=== PATIENT | female | born 1995 | race Two or more races ===

== ENCOUNTER 2020-08-29 10:37 | Outpatient (REF) | payer OTHER, SELFPAY | END 2020-08-29 10:38 | disposition home or self-care (01) | LOC: HO.LAB 10:37 | PROVIDERS: Visit Provider Internal Medicine | DX: Z20.828 Contact with and (suspected) exposure to other viral communicable diseases (principal) | CPT/HCPCS: C9803; U0003 ==

== ENCOUNTER 2020-09-02 07:53 | Outpatient (REF) | payer OTHER, SELFPAY ==
[2020-09-02 08:28] LABS: Hematocrit 40.2 % (37-47); Hemoglobin 13.8 g/dl (12.0-16.0); Mean Corpuscular HGB Conc 34.3 g/dl (31.0-35.0); Mean Corpuscular Hemoglobin 30.7 pg (27.0-33.0); Mean Corpuscular Volume 89.3 fL (80-98); Mean Platelet Volume 10.2 fL (9.4-12.3); Platelet Count 294 X10*3/uL (160-400); Red Cell Distribution Width 11.4 % (11.0-16.0); White Blood Count 6.6 X10*3/uL (4.8-10.8)
[2020-09-02 09:20] LABS: Alanine Aminotransferase 11 U/L (0-31); Albumin Level 4.2 g/dL (3.5-5.0); Alkaline Phosphatase 67 U/L (39-117); Anion Gap 11 (12-20); Aspartate Amino Transferase 15 U/L (5-31); Bilirubin Total 0.7 mg/dL (0.0-1.0); Blood Urea Nitrogen 12 mg/dL (9-16); Calcium 8.7 mg/dL (8.4-10.2); Carbon Dioxide 25 mmol/L (22-29); Chloride 105 mmol/L (96-108); Cholesterol 208 mg/dL; Estimated Glomerular Filt Rate > 60; Glucose Fasting 91 mg/dL (60-99); HDL Cholesterol 37 mg/dL; Iron 90 mcg/dL (30-160); LDL Cholesterol Calculated 161 mg/dl; Percent Iron Saturation 30 % (15-50); Potassium 4.2 mmol/l (3.3-5.1); Sodium 137 mmol/L (135-145); Total Iron Binding Capacity 303 mcg/dL (228-428); Triglycerides 51 mg/dL; Unsaturated Iron Binding 213 ug/dL
== END 2020-09-02 07:54 | disposition home or self-care (01) ==
LOC: HO.LAB 07:53
PROVIDERS: Visit Provider Internal Medicine
DX: Z30.46 Encounter for surveillance of implantable subdermal contraceptive (principal)
CPT/HCPCS: 36415; 80053; 80061; 83540; 84443; 85027

== ENCOUNTER → 2020-09-03 08:17 | Outpatient (BNVA) | payer OTHER, SELFPAY | PROVIDERS: PCP Internal Medicine; Visit Provider Advanced Practice Midwife | DX: Z30.46 Encounter for surveillance of implantable subdermal contraceptive (principal) | CPT/HCPCS: 11982 ==

== ENCOUNTER → 2020-11-04 11:00 | Outpatient (BNVA) | payer OTHER, SELFPAY | PROVIDERS: PCP Internal Medicine; Visit Provider Advanced Practice Midwife ==

== ENCOUNTER 2020-11-20 10:35 | Outpatient (REF) | payer OTHER, SELFPAY | END 2020-11-20 10:36 | disposition home or self-care (01) | LOC: HO.LAB 10:35 | PROVIDERS: Visit Provider Advanced Practice Midwife | DX: O20.0 Threatened abortion (principal); Z3A.00 Weeks of gestation of pregnancy not specified | CPT/HCPCS: 36415; 84702; 86850; 86886; 86900; 86901 ==

== ENCOUNTER 2020-11-21 09:39 | Outpatient (REF) | payer OTHER, SELFPAY ==
[2020-11-22 11:42] LABS: C. trachomatis RNA TMA NOT DETECTED (NOT DETECTED); N. gonorrhoeae RNA TMA NOT DETECTED (NOT DETECTED)
== END 2020-11-21 09:40 | disposition home or self-care (01) ==
LOC: HO.LAB 09:39
PROVIDERS: Visit Provider Advanced Practice Midwife
DX: O20.0 Threatened abortion (principal); Z3A.00 Weeks of gestation of pregnancy not specified
CPT/HCPCS: 36415; 87491; 87591

== ENCOUNTER 2020-11-21 11:02 | Outpatient (REF) | payer OTHER, SELFPAY ==
--- NOTE | ~2020-11-21 | US_ITS ---
EXAMINATION: OBSTETRICAL ULTRASOUND, FIRST TRIMESTER HISTORY: 25-year-old with abdominal cramping Rule out threatened AB LMP: Unknown COMPARISON: None in this TECHNIQUE: Real time transabdominal imaging with color and M-mode Doppler. FINDINGS: A single, live IUP CRL of 23.0 mm c/w 9.0wks is noted. Heart Rate: 182 beats per minute. No evidence of subchorionic hematoma. Both maternal ovaries are seen and appear normal. No free fluid in the cul-de-sac GESTATIONAL AGE: 1. GA from LMP: N/A wks 2. GA from AUA: 9.0 wks ESTIMATED DATE OF DELIVERY: 1. LEFTY from LMP: N/A 2. LEFTY from AUA: 06/26/2021 US/US OB <= 14 weeks fetus IMPRESSION: 1. A single live IUP 2. CRL 23.0 mm, c/w 9.0 wks, LEFTY 06/26/21 3. Normal ovaries
== END 2020-11-21 11:03 | disposition home or self-care (01) ==
LOC: HO.US 11:02
PROVIDERS: Visit Provider Advanced Practice Midwife
DX: O20.0 Threatened abortion (principal)
CPT/HCPCS: 76801

== ENCOUNTER → 2020-11-26 11:04 | Outpatient (BNVA) | payer OTHER, SELFPAY | PROVIDERS: Visit Provider Advanced Practice Midwife | CPT/HCPCS: 99212 ==

== ENCOUNTER 2020-12-03 13:00 | Outpatient (REF) | payer OTHER, SELFPAY ==
[2020-12-03 13:41] LABS: MANUAL DIFF FLAG NO
[2020-12-03 13:44] LABS: Basophils Percent Auto 0.3 % (0-2); Eosinophils Absolute Auto 0.1 X10*3/uL (0.0-0.4); Eosinophils Percent Auto 0.9 % (0-4); Hematocrit 38.9 % (37-47); Hemoglobin 13.3 g/dl (12.0-16.0); Imm Gran Abs Auto 0.04 X10*3/uL (0.00-0.03); Imm Gran Pct Auto 0.3 % (0.0-0.4); Lymphocytes Absolute Auto 1.6 X10*3/uL (1.2-4.9); Mean Corpuscular HGB Conc 34.2 g/dl (31.0-35.0); Mean Corpuscular Hemoglobin 30.9 pg (27.0-33.0); Mean Corpuscular Volume 90.3 fL (80-98); Mean Platelet Volume 10.5 fL (9.4-12.3); Monocytes Absolute Auto 0.4 X10*3/uL (0.1-1.2); Monocytes Percent Auto 3.5 % (2-11); Neutrophils Absolute Auto 9.5 X10*3/uL (2.0-8.3); Platelet Count 292 X10*3/uL (160-400); Red Blood Count 4.31 X10*6/uL (4.20-5.50); Red Cell Distribution Width 11.9 % (11.0-16.0); White Blood Count 11.7 X10*3/uL (4.8-10.8)
[2020-12-03 14:39] LABS: Syphilis Screen Nonreactive (Nonreactive)
[2020-12-03 14:59] LABS: Amphetamine Screen Urine Not Detected (Not Detect); Barbiturates, Urine Not Detected (Not Detect); Benzodiazepines Screen Urine Not Detected (Not Detect); Cannabinoid Screen Urine Not Detected (Not Detect); Cocaine Screen Urine Not Detected (Not Detect); Opiate Screen Urine Not Detected (Not Detect); Phencyclidine Screen Urine Not Detected (Not Detect)
[2020-12-04 05:46] LABS: Rubella IgG Antibody 4.79 Index; Varicella IgG Antibody >4000.00 index
[2020-12-04 08:00] LABS: HIV AB/AG Nonreactive (Nonreactive); HIV Num 1 0.08 S/CO (0.00-0.99); Hepatitis B Surface Antigen Negative (Negative); ~Hepatitis C Antibody Nonreactive (Nonreactive)
== END 2020-12-03 13:01 | disposition home or self-care (01) ==
LOC: HO.LAB 13:00
PROVIDERS: PCP Internal Medicine; Visit Provider Advanced Practice Midwife
DX: Z34.90 Encounter for supervision of normal pregnancy, unspecified, unspecified trimester (principal); Z3A.00 Weeks of gestation of pregnancy not specified
CPT/HCPCS: 80307; 85025; 86762; 86780; 86787; 86803; 86850; 86900; 86901; 87086; 87340; 87389

== ENCOUNTER 2020-12-04 09:00 | Outpatient (REF) | payer OTHER, SELFPAY ==
[2020-12-09 13:31] LABS: HPV mRNA E6/E7 rflx Not Detected (Not Detected)
== END 2020-12-04 09:01 | disposition home or self-care (01) ==
LOC: HO.LAB 09:00
PROVIDERS: PCP Internal Medicine; Visit Provider Advanced Practice Midwife
DX: O20.0 Threatened abortion (principal); Z3A.10 10 weeks gestation of pregnancy
CPT/HCPCS: 36415; 81003; 87624; 88142; 99212

== ENCOUNTER 2020-12-06 13:56 | Emergency (ER) | payer OTHER, SELFPAY ==
--- NOTE | ~2020-12-06 | US_ITS ---
EXAMINATION: US OBSTETRICAL ULTRASOUND CLINICAL INFORMATION: Vaginal bleeding COMPARISON: 11/21/2020. LMP: Unknown. TECHNIQUE: Real-time transabdominal imaging with color and M-mode Doppler FINDINGS: There is a single intrauterine gestational sac with visible yolk sac, embryo/fetus, and cardiac activity. There is no significant subchorionic hemorrhage or hematoma. HR: 155 beats per minute. CRL (crown rump length): 4.22 cm (11 +/- 4 days). LEFTY (estimated date of delivery): 06/26/2021 +/- 4 days. MATERNAL ADNEXA: The right maternal ovary measures 3.1 x 2.0 x 2.3 cm. The left maternal ovary measures 2.4 x 1.3 x 1.2 cm. There is no significant maternal adnexal mass. No maternal pelvic ascites. US/US OB <= 14 weeks fetus IMPRESSION: 1. Single intrauterine gestation with ultrasound gestational age of 11 weeks +/- 4 days, unchanged. 2. Estimated date of delivery is 06/26/2021 +/- 4 days, unchanged. 3. No maternal adnexal mass or pelvic ascites.
[2020-12-06 14:10] VITALS: BP 127/53; PULSE 86; RESP 18; TEMP 37.3; O2SAT 99; BMI 27.1
[2020-12-06 16:12] LABS: MANUAL DIFF FLAG NO
[2020-12-06 16:14] LABS: Basophils Percent Auto 0.3 % (0-2); Eosinophils Absolute Auto 0.1 X10*3/uL (0.0-0.4); Eosinophils Percent Auto 0.9 % (0-4); Hemoglobin 12.9 g/dl (12.0-16.0); Imm Gran Abs Auto 0.03 X10*3/uL (0.00-0.03); Imm Gran Pct Auto 0.3 % (0.0-0.4); Lymphocytes Absolute Auto 1.8 X10*3/uL (1.2-4.9); Lymphocytes Percent Auto 15.9 % (20-40); Mean Corpuscular HGB Conc 34.9 g/dl (31.0-35.0); Mean Corpuscular Hemoglobin 31.1 pg (27.0-33.0); Mean Corpuscular Volume 89.2 fL (80-98); Mean Platelet Volume 10.2 fL (9.4-12.3); Monocytes Absolute Auto 0.6 X10*3/uL (0.1-1.2); Monocytes Percent Auto 5.2 % (2-11); Neutrophils Absolute Auto 8.9 X10*3/uL (2.0-8.3); Neutrophils Percent Auto 77.4 % (45-73); Platelet Count 276 X10*3/uL (160-400); Red Blood Count 4.15 X10*6/uL (4.20-5.50); Red Cell Distribution Width 11.8 % (11.0-16.0); White Blood Count 11.5 X10*3/uL (4.8-10.8)
[2020-12-06 16:37] LABS: Anion Gap 12 (12-20); Blood Urea Nitrogen 11 mg/dL (9-16); Calcium 8.9 mg/dL (8.4-10.2); Carbon Dioxide 23 mmol/L (22-29); Chloride 104 mmol/L (96-108); Creatinine Clr Calc Pharmacy 120.6; Estimated Glomerular Filt Rate > 60; Glucose Random 94 mg/dL (60-115); Potassium 3.9 mmol/L (3.3-5.1); Sodium 135 mmol/L (135-145)
--- NOTE | 2020-12-06 20:06 | ED_ITS ---
HPI - General Chief complaint: Vaginal Bleeding Stated complaint: VAGINAL BLEEDING Source: patient Mode of arrival: ambulatory Limitations: no limitations History of Present Illness HPI Narrative: 25-year-old female 2 para 1 A0 presents approximately of 11 weeks with abdominal cramping, vaginal bleeding, and vaginal discharge. She was seen by her Ob approximately a week ago, tested for STIs with normal findings. She called out OB, stated that Dr. Lynch recommended that she come to the emergency department for evaluation and pelvic ultrasound. She does not describe any malodorous discharge, assault, trauma, chest pain or pressure, palpitations, shortness of breath, edema, numbness, weakness, abdominal distention, dysuria, or hematuria. MD Complaint: abdominal pain, vaginal bleeding and vaginal discharge Onset (ago): day(s) (3) Pain Consistency: intermittent Location: pelvis Severity: moderate Quality: Cramping Radiation: pelvis Relieving factors: none Associated symptoms: vaginal bleeding and vaginal discharge Vaginal discharge: cloudy Vaginal bleeding: light Patient : Yes Expected Date of Delivery: 07/02/21 OB History - Current : no complications OB History - Previous Pregnancies: no complications care: followed by OB Related Data : 2 Para: 1 Total number of abortions (spontaneous and elective): 0 Home Medications Medication Instructions Recorded Confirmed doxylamine succinate 25 mg tablet 25 mg PO BEDTIME PRN 11/26/20 11/26/20 pyridoxine (vitamin B6) 25 mg 25 mg PO TID 11/26/20 11/26/20 tablet Previous Rx's Medication Instructions Recorded fluoxetine 10 mg tablet 10 mg PO DAILY #90 tab 08/29/20 vitamin with calcium 1 tab PO DAILY 30 Days #30 tab 11/04/20 no.72-iron 27 mg-folic acid 1 mg tablet Allergies Allergy/AdvReac Type Severity Reaction Status Date / Time No Known Allergies Allergy Verified 12/04/20 09:09 [No Known Allergies*] Review of Systems Review of Systems: Constitutional: No Fever, No Chills ENT/Mouth: No sore throat, No Rhinorrhea Eyes: No Eye Pain, No Redness Cardiovascular: No Chest Pain, No SOB Respiratory: No Cough, No Sputum, No Wheezing Gastrointestinal: positive Nausea, No Vomiting, No Diarrhea, positive abdominal pain, Genitourinary: positive irregular bleeding, No Dysuria, No Urinary Frequency, positive pelvic cramping, positive vaginal discharge Musculoskeletal: No Myalgias Skin: No rash Neuro: No Weakness, No Headache Psych: No Anxiety/Panic, No Depression Heme/Lymph: No bruising, No Lymphadenopathy Endocrine: No Polyuria, No Polydipsia Yes all other systems are reviewed and are negative PENDING SALE TO [facility] Past Medical History Attestation statement: The following information was validated with the patient. Source: old records reviewed Medical History Annual physical exam Anxiety disorder Breast pain, right Irregular menses Surgical History [place] teeth extracted : 2 Para: 1 Total number of abortions (spontaneous and elective): 0 Family History Family History Father Medical history non-contributory Mother History of hysterectomy Thyroid disorder Maternal Grandmother No problems noted. Maternal Grandfather Throat cancer Smoker Alcohol drinker Paternal Grandfather Unknown family medical history Paternal Grandmother HTN (hypertension) Paternal Aunt Cancer Sister Healthy female Social History Social History Household Members: Significant Other and Children Alcohol intake: current Alcohol intake frequency: holidays/special occasions only Smoking Status: Never smoker Advance Directives: Yes Advance Directives Information Provided: No Advance Directives on File: No Physical Exam Vital Signs: Vital Signs: Last Vital Signs Temp 99.2 F 12/06/20 14:10 Pulse 63 12/06/20 21:50 Resp 18 12/06/20 21:50 BP 100/62 12/06/20 21:50 Pulse Ox 100 12/06/20 21:50 Body Mass Index 27.1 Appearance: Alert. Oriented X3. No acute distress. Eyes: Pupils equal, round and reactive to light. ENT: Pharynx normal. Neck: Normal inspection. Neck supple. CVS: Normal heart rate and rhythm. Pulses normal. Respiratory: No respiratory distress. Breath sounds normal. Abdomen: Soft and nontender. Skin: Skin warm and dry. Normal skin color. Normal skin turgor. Extremities: No lower extremity edema. Neuro: No motor deficit. No sensory deficit. : General: Yes bladder normal to palpation External Female Exam: normal external appearance and normal appearance of the urethra Speculum Exam - Vagina: abnormal vaginal discharge white, not erythematous, no foreign bodies, no lacerations, no lesions, No vaginal bleeding, No tissue present in vagina, no masses and nontender Speculum Exam - Cervix: normal palpation, Cervical os closed, nontender and Other cervical findings present (Friability, multiple punctate hemorrhages consistent with strawberry cervix) Bimanual exam- vagina & uterus: normal bimanual exam, bladder normal to palpation, normal palpation, No Cervical tenderness present and no cervical motion tenderness Bimanual Exam- Adnexa, other: normal adnexae OB/external & speculum: no foreign bodies, no tissue noted in vagina and vaginal bleeding Course Course Course Narrative: A 25-year-old female 2 para 1 0 presents with vaginal bleeding, white vaginal discharge, and cramping. Her daughter is 4, normal vaginal delivery, no complications with prior . Patient was seen by her Ob about a week ago, was tested for STI which were negative. Will test for trichomoniasis and bacterial vaginosis, cervix is closed and slit consistent with prior vaginal delivery, no tissue in the office, white thick discharge noted with punctate hemorrhages consistent with strawberry cervix, friable upon cervical swab. Order for pelvic ultrasound. Pelvic ultrasound shows intrauterine at 11 weeks +/-4 days with heartbeat of 155. Discussion with Dr. Lynch, plan is for patient follow-up in the office. Patient verbalized understanding of and agrees plan of care discharge home. MDM - OB/Uterine Contractions MDM Narrative Medical decision making narrative: Missed , threatened , abnormal vaginal bleeding, trichomoniasis, bacterial vaginosis, candidiasis Medical Records Attestation: I reviewed the patient's medical records. Lab Data Attestation: I reviewed the patient's lab results. Result diagrams: 12/06/20 16:01 12/06/20 16:01 Labs: Lab Results 12/06/20 12/06/20 12/06/20 Range/Units 16:01 16:01 16:01 WBC 11.5 H (4.8-10.8) X10*3/uL RBC 4.15 L (4.20-5.50) X10*6/uL Hgb 12.9 (12.0-16.0) g/dl Hct 37.0 (37-47) % MCV 89.2 (80-98) fL MCH 31.1 (27.0-33.0) pg MCHC 34.9 (31.0-35.0) g/dl RDW 11.8 (11.0-16.0) % Plt Count 276 (160-400) X10*3/uL MPV 10.2 (9.4-12.3) fL Immature Gran % (Auto) 0.3 (0.0-0.4) % Neut % (Auto) 77.4 H (45-73) % Lymph % (Auto) 15.9 L (20-40) % [place] % (Auto) 5.2 (2-11) % Eos % (Auto) 0.9 (0-4) % Baso % (Auto) 0.3 (0-2) % Lymph # (Auto) 1.8 (1.2-4.9) X10*3/uL [place] # (Auto) 0.6 (0.1-1.2) X10*3/uL Eos # (Auto) 0.1 (0.0-0.4) X10*3/uL Baso # (Auto) 0.0 (0.0-0.2) X10*3/uL Abs Immat Gran (auto) 0.03 (0.00-0.03) X10*3/uL Absolute Neuts (auto) 8.9 H (2.0-8.3) X10*3/uL Absolute Nucleated RBC 0.000 (0.0-0.012) X10*3/uL Nucleated RBC % (auto) 0.0 (0.0-0.2) /100WBC Hold Blue Top SEE NOTE Sodium 135 (135-145) mmol/L Potassium 3.9 (3.3-5.1) mmol/L Chloride 104 (96-108) mmol/L Carbon Dioxide 23 (22-29) mmol/L Anion Gap 12 (12-20) BUN 11 (9-16) mg/dL Creatinine 0.68 (0.5-1.4) mg/dL Estim Creat Clear Calc 120.6 Estimated GFR > 60 Random Glucose 94 (60-115) mg/dL Calcium 8.9 (8.4-10.2) mg/dL Beta HCG, Quant mIU/mL Blood Type 12/06/20 12/06/20 Range/Units 21:35 21:35 WBC (4.8-10.8) X10*3/uL RBC (4.20-5.50) X10*6/uL Hgb (12.0-16.0) g/dl Hct (37-47) % MCV (80-98) fL MCH (27.0-33.0) pg MCHC (31.0-35.0) g/dl RDW (11.0-16.0) % Plt Count (160-400) X10*3/uL MPV (9.4-12.3) fL Immature Gran % (Auto) (0.0-0.4) % Neut % (Auto) (45-73) % Lymph % (Auto) (20-40) % [place] % (Auto) (2-11) % Eos % (Auto) (0-4) % Baso % (Auto) (0-2) % Lymph # (Auto) (1.2-4.9) X10*3/uL [place] # (Auto) (0.1-1.2) X10*3/uL Eos # (Auto) (0.0-0.4) X10*3/uL Baso # (Auto) (0.0-0.2) X10*3/uL Abs Immat Gran (auto) (0.00-0.03) X10*3/uL Absolute Neuts (auto) (2.0-8.3) X10*3/uL Absolute Nucleated RBC (0.0-0.012) X10*3/uL Nucleated RBC % (auto) (0.0-0.2) /100WBC Hold Blue Top Sodium (135-145) mmol/L Potassium (3.3-5.1) mmol/L Chloride (96-108) mmol/L Carbon Dioxide (22-29) mmol/L Anion Gap (12-20) BUN (9-16) mg/dL Creatinine (0.5-1.4) mg/dL Estim Creat Clear Calc Estimated GFR Random Glucose (60-115) mg/dL Calcium (8.4-10.2) mg/dL Beta HCG, Quant 90351 mIU/mL Blood Type A Positive Imaging Data Ob transvaginal ultrasound: Attestation: I personally reviewed and interpreted this imaging study as follows: Radiologist's impression: EXAMINATION: US OBSTETRICAL ULTRASOUND CLINICAL INFORMATION: Vaginal bleeding COMPARISON: 11/21/2020. LMP: Unknown. TECHNIQUE: Real-time transabdominal imaging with color and M-mode Doppler FINDINGS: There is a single intrauterine gestational sac with visible yolk sac, embryo/fetus, and cardiac activity. There is no significant subchorionic hemorrhage or hematoma. HR: 155 beats per minute. CRL (crown rump length): 4.22 cm (11 +/- 4 days). LEFTY (estimated date of delivery): 06/26/2021 +/- 4 days. MATERNAL ADNEXA: The right maternal ovary measures 3.1 x 2.0 x 2.3 cm. The left maternal ovary measures 2.4 x 1.3 x 1.2 cm. There is no significant maternal adnexal mass. No maternal pelvic ascites. US/US OB <= 14 weeks fetus IMPRESSION: 1. Single intrauterine gestation with ultrasound gestational age of 11 weeks +/- 4 days, unchanged. 2. Estimated date of delivery is 06/26/2021 +/- 4 days, unchanged. 3. No maternal adnexal mass or pelvic ascites. Discharge Plan Discharge Clinical Impression: Threatened Patient Disposition: Home, Self-Care Instructions: Miscarriage (ED), Threatened Miscarriage (ED) Additional Instructions: You were evaluated for 1st trimester vaginal bleeding and pain. Your ultrasound showed an intrauterine with heart rate of 155. Please follow the instructions for threatened miscarriage, if you notice any of the signs or symptoms please return to the emergency department immediately. Please follow-up with Dr. Lynch's office tomorrow. Please call and make an appointment. Thank you for choosing this emergency department for evaluation. Please follow-up with primary care physician as needed. Return to the emergency department for any new, concerning, or worsening symptoms. Prescriptions: No Action fluoxetine 10 mg tablet 10 mg PO DAILY Qty: 90 RF: 1 Vitamin Plus Low Iron 27 mg iron- 1 mg tablet 1 tab PO DAILY 30 Days Qty: 30 RF: 11 pyridoxine (vitamin B6) 25 mg tablet 25 mg PO TID RF: 0 Unisom (doxylamine) 25 mg tablet 25 mg PO BEDTIME PRNRF: 0 Referrals: Ernst Lynch MD [Physician] - 2 days (F/U for first-trimester vaginal pain or bleeding.)
[2020-12-06 21:50] VITALS: BP 100/62; PULSE 63; RESP 18; O2SAT 100
--- NOTE | 2020-12-06 22:54 | P.CONOB_ITS ---
HRIS COORDINATOR - CN: HPI Data of Consult Primary Care Provider: Sabiha Mcclure MD Consult Narrative Narrative: Myranda Venegas is a 25 year old female cc:: CC: [facility] Past Medical History Medical History Annual physical exam Anxiety disorder Breast pain, right Irregular menses Family History Family History Father Medical history non-contributory Mother History of hysterectomy Thyroid disorder Maternal Grandmother No problems noted. Maternal Grandfather Throat cancer Smoker Alcohol drinker Paternal Grandfather Unknown family medical history Paternal Grandmother HTN (hypertension) Paternal Aunt Cancer Sister Healthy female Surgical History Surgical History [place] teeth extracted Social History Social History Household Members: Significant Other and Children Alcohol intake: current Alcohol intake frequency: holidays/special occasions only Smoking Status: Never smoker Advance Directives: Yes Advance Directives Information Provided: No Advance Directives on File: No Meds Allergies Allergy/AdvReac Type Severity Reaction Status Date / Time No Known Allergies Allergy Verified 12/04/20 09:09 [No Known Allergies*] Home Medications Medication Instructions Recorded Confirmed Last Taken Type doxylamine succinate 25 mg tablet 25 mg PO BEDTIME PRN 11/26/20 11/26/20 Unknown History pyridoxine (vitamin B6) 25 mg 25 mg PO TID 11/26/20 11/26/20 Unknown History tablet HRIS COORDINATOR Physical Exam Vitals Vital signs: Temp Pulse Resp BP Pulse Ox 99.2 F 63 18 100/62 100 12/06/20 14:10 12/06/20 21:50 12/06/20 21:50 12/06/20 21:50 12/06/20 21:50 Body Mass Index 27.1 HRIS COORDINATOR - Results Labs CBC & Chem 7: 12/06/20 16:01 12/06/20 16:01 Labs: Short CBC 12/06/20 Range/Units 16:01 WBC 11.5 H (4.8-10.8) X10*3/uL Hgb 12.9 (12.0-16.0) g/dl Hct 37.0 (37-47) % Plt Count 276 (160-400) X10*3/uL BMP 12/06/20 16:01 Sodium 135 Potassium 3.9 Chloride 104 Carbon Dioxide 23 BUN 11 Creatinine 0.68 Calcium 8.9
--- NOTE | 2020-12-06 22:55 | P.CONOB_ITS ---
FLOODPLAIN MANAGER - CN: HPI Data of Consult Consult date: 12/06/20 Primary Care Provider: Sabiha Mcclure MD Consult Narrative Narrative: I was called on Myranda Venegas, a 25 year old female presented to emergency room with few days history of vaginal bleeding. GC and chlamydia, BV panel, CBC, chemistry all taken ultrasound showed a live fetus at 11 weeks of gestation with a heartbeat of 155 beats per minute. Rh positive cc:: CC: [employer] - Review of Systems Review of Systems ROS Unobtainable: All systems reviewed & are unremarkable except as noted in HPI and below OB PMFSH Past Medical History Medical History Annual physical exam Anxiety disorder Breast pain, right Irregular menses Family History Family History Father Medical history non-contributory Mother History of hysterectomy Thyroid disorder Maternal Grandmother No problems noted. Maternal Grandfather Throat cancer Smoker Alcohol drinker Paternal Grandfather Unknown family medical history Paternal Grandmother HTN (hypertension) Paternal Aunt Cancer Sister Healthy female Surgical History Surgical History [place] teeth extracted Social History Social History Household Members: Significant Other and Children Alcohol intake: current Alcohol intake frequency: holidays/special occasions only Smoking Status: Never smoker Advance Directives: Yes Advance Directives Information Provided: No Advance Directives on File: No Meds Allergies Allergy/AdvReac Type Severity Reaction Status Date / Time No Known Allergies Allergy Verified 12/04/20 09:09 [No Known Allergies*] Home Medications Medication Instructions Recorded Confirmed Last Taken Type doxylamine succinate 25 mg tablet 25 mg PO BEDTIME PRN 11/26/20 11/26/20 Unknown History pyridoxine (vitamin B6) 25 mg 25 mg PO TID 11/26/20 11/26/20 Unknown History tablet FLOODPLAIN MANAGER Physical Exam Vitals Vital signs: Temp Pulse Resp BP Pulse Ox 99.2 F 63 18 100/62 100 12/06/20 14:10 12/06/20 21:50 12/06/20 21:50 12/06/20 21:50 12/06/20 21:50 Body Mass Index 27.1 Additional Comments: Exam reported to show a red closed cervix otherwise unremarkable FLOODPLAIN MANAGER - Results Labs CBC & Chem 7: 12/06/20 16:01 12/06/20 16:01 Labs: Short CBC 12/06/20 Range/Units 16:01 WBC 11.5 H (4.8-10.8) X10*3/uL Hgb 12.9 (12.0-16.0) g/dl Hct 37.0 (37-47) % Plt Count 276 (160-400) X10*3/uL BMP 12/06/20 16:01 Sodium 135 Potassium 3.9 Chloride 104 Carbon Dioxide 23 BUN 11 Creatinine 0.68 Calcium 8.9 Assessment and Plan (1) Threatened : Status: Acute Will follow-up the patient office check GC and chlamydia and BV panel and Pap smear was taken in the office. Instructions to be given to patient to call if cramping or bleeding persists or come back to emergency otherwise follow-up in the office.
[2020-12-06 23:09] LABS: Glucose Urine UA NEG (NEG); Leukocyte Esterase Urine 1+ (NEG); Nitrite Urine NEG (NEG); PH 6.5 (5.0-8.0); UACC Culture Trigger YES; Urine Blood NEG (NEG); Urine Ketones NEG (NEG); Urine Protein NEG (NEG-TRACE)
[2020-12-06 23:10] LABS: Appearance Urine CLEAR; Color Urine YELLOW
[2020-12-06 23:14] LABS: Bacteria Urine 1+ /LPF; Squamous Epithelial Cell Urine 2+ /LPF
[2020-12-07 02:51] VITALS: BP 114/75; PULSE 61; RESP 18; TEMP 36.4; O2SAT 98
[2020-12-07 09:10] LABS: BV Int Neg Control Negative (Negative); BV Int Pos Control Positive (Positive)
[2020-12-11 17:47] LABS: C. trachomatis RNA TMA NOT DETECTED; N. gonorrhoeae RNA TMA NOT DETECTED
== END 2020-12-07 01:00 | disposition home or self-care (01) ==
PROVIDERS: Nurse Practitioner Family; Emergency Provider Internal Medicine; PCP Internal Medicine
DX: O20.0 Threatened abortion (principal); Z3A.11 11 weeks gestation of pregnancy
CPT/HCPCS: 36415; 76801; 80048; 81001; 81003; 84702; 85025; 86900; 86901; 87086; 87480; 87491; 87510; 87591; 87660; 99283; 99284

== ENCOUNTER → 2020-12-11 07:56 | Outpatient (BNVA) | payer OTHER, SELFPAY | PROVIDERS: Visit Provider Obstetrics & Gynecology | DX: O20.0 Threatened abortion (principal) | CPT/HCPCS: 99212 ==

== ENCOUNTER 2020-12-19 09:03 | Outpatient (REF) | payer OTHER, SELFPAY ==
--- NOTE | ~2020-12-19 | US_ITS ---
EXAMINATION: OBSTETRICAL ULTRASOUND, FIRST TRIMESTER HISTORY: 25-year-old at 13.0 weeks of gestation NT screening COMPARISON: 12/06/2020 TECHNIQUE: Real time transabdominal imaging with color and M-mode Doppler. FINDINGS: A single, live IUP CRL of 70.8 mm c/w 13.0wks is noted. Heart Rate: 143 beats per minute. Normal yolk sac seen. NT was 1.4.mm. NB Present The embryo appears sonographically wnl for this GA. Both maternal ovaries are seen and appear normal. GESTATIONAL AGE: 1. Established GA: 13.0 wks 2. GA from AUA: 13.2 wks ESTIMATED DATE OF DELIVERY: 1. Established LEFTY: 06/26/2021 2. LEFTY from AUA: 06/24/2021 US/US OB 1T nuc measure IMPRESSION: 1. Single live IUP 2. Size equals dates 3. NT of 1.3 mm MFM Consultation: I reviewed the ultrasound findings along with significance of NT measurement. The NT of less than 3mm is generally reassuring. However, the sensitivity for T21 detection is only 60%. I reviewed the availability of serum aneuploidy screening which includes cell-free DNA and placental protein based tests. I discussed the sensitivity, false-positive rate, and other limitations associated with each test. I also reviewed the availability of invasive diagnostic tests that are associated small but definite risk of miscarriage. We also reviewed the differences between screening tests and diagnostic tests. After our discussion, she opted for the First trimester screening that is based on cell-free DNA or non-invasive testing (NIPT). The result will be faxed to your office in approximately 7 days. A follow up at 18 weeks for survey has been scheduled. Thank you very much for this referral. Total time 30 minutes. The time spent was devoted to counseling the patient about the disease and diagnosis, coordinating care including reviewing her records, pertinent lab data and studies, as well as discussing diagnostic evaluation and workup, plan therapeutic interventions and future disposition of care. This includes any additional research needed to obtain further information in formulating the plan of care of this patient. This note was generated with a voice recognition program. Please excuse any errors which may have been overlooked during my review of this note. Sometimes these errors may affect the content or meaning of a given sentence.
== END 2020-12-19 09:04 | disposition home or self-care (01) ==
LOC: HO.US 09:03
PROVIDERS: Visit Provider Advanced Practice Midwife
DX: Z34.91 Encounter for supervision of normal pregnancy, unspecified, first trimester (principal); Z36.82 Encounter for antenatal screening for nuchal translucency
CPT/HCPCS: 76813

== ENCOUNTER → 2021-01-01 08:17 | Outpatient (BNVA) | payer OTHER, SELFPAY | PROVIDERS: Visit Provider Advanced Practice Midwife | DX: Z13.9 Encounter for screening, unspecified (principal); Z34.92 Encounter for supervision of normal pregnancy, unspecified, second trimester; Z3A.14 14 weeks gestation of pregnancy | CPT/HCPCS: 99212 ==

== ENCOUNTER 2021-01-30 08:19 | Outpatient (REF) | payer OTHER, SELFPAY ==
--- NOTE | ~2021-01-30 | US_ITS ---
EXAMINATION: US OBSTETRICAL CLINICAL INFORMATION: 25-year-old at 19.0 weeks Screening for anomaly COMPARISON: 12/19/2020 TECHNIQUE: Real-time transabdominal ultrasound was performed using C1-5 megahertz transducer. FINDINGS: A single, active, fetus is seen in cephalic presentation. The placenta is anterior without previa, and the amniotic fluid volume is wnl. MEASUREMENTS: 1. Biparietal Diameter: 4.2 cm; 18.6 wks 2. Occipital Frontal Diameter: 5.6 cm 3. Head Circumference: 16.3 cm; 19.1 wks 4. Abdominal Circumference: 13.5 cm; 19.0 wks 5. Femur Length: 3.0 cm; 19.4 wks 6. Humerus Length: 2.7 cm; 18.5 wks 7. Tibia Length: 2.6 cm; 19.4 wks 8. Ulna Length: 2.6 cm; 19.2 wks 9. Lateral ventricle: 0.64 cm 10. Cerebellum: 1.95 cm; 20.0 wks 11. Cisterna Magna: 0.5 cm 12. Nuchal Fold: 4.2 mm 13. Heart Rate: 147 beats per minute Rt ovary: normal Lt ovary: normal Cervical length 4.7 cm on T/A. GESTATIONAL AGE: 1. Established GA: 19.0 wks 2. GA from [facility]: 19.1 wks ESTIMATED DATE OF DELIVERY: 1. Established LEFTY: 06/26/2021 2. LEFTY from [facility]: 06/25/2021 ANATOMY: The visualized anatomy includes but not limited to: 1. Cranium: Normal 2. Intracranial anatomy: cavum septum pellucidi, lateral ventricles, choroid plexus, cerebellum, posterior fossa, third and fourth ventricles. 3. face: orbits, lip/palate, profile, nasal bone 4. Heart: four-chamber view of the heart, ventricular septum, foramen ovale, pulmonary vein, left and right outflow tracts, three-vessel view, 3 vessel trachea view, aortic and ductal arches, situs.. 5. Diaphragm: Normal 6. Abdominal wall: Normal 7. Cord Insertion: Normal 8. Spine: Cervical, thoracic, lumbar, sacral. 9. Stomach: Normal size and shape 10. Right Kidney: Normal 11. Left Kidney: Normal 12. 3 vessel cord: Normal 13. Upper extremity: Open hands, fifth digit. 14. Lower extremity: Tibia, fibula, bilateral feet. 15. Bladder: Normal 16. Genitalia: Male, patient not aware US/US OB /maternal detail IMPRESSION: 1. Single, living, intrauterine with appropriate biometry. 2. Normal survey DISCUSSION: I reviewed today's ultrasound findings. We discussed the limitations of ultrasound in diagnosing aneuploidy and other congenital abnormalities. I reviewed the differences between screening test and diagnostic test. Amniocentesis was discussed and declined. She was informed that the baseline incidence of congenital abnormalities is approximately 3-5%. Not all these conditions are diagnosable in utero. RECOMMENDATIONS: Follow-up when necessary Thank you for allowing me to participate in her care. Total time 20 minutes. The time spent was devoted to counseling the patient about the disease and diagnosis, coordinating care including reviewing her records, pertinent lab data and studies, as well as discussing diagnostic evaluation and workup, plan therapeutic interventions and future disposition of care. This includes any additional research needed to obtain further information in formulating the plan of care of this patient. This note was generated with a voice recognition program. Please excuse any errors which may have been overlooked during my review of this note. Sometimes these errors may affect the content or meaning of a given sentence.
== END 2021-01-30 08:20 | disposition home or self-care (01) ==
LOC: HO.US 08:19
PROVIDERS: PCP Nurse Practitioner Family; Visit Provider Advanced Practice Midwife
DX: O35.9XX0 Maternal care for (suspected) fetal abnormality and damage, unspecified, not applicable or unspecified (principal); Z3A.19 19 weeks gestation of pregnancy
CPT/HCPCS: 76811

== ENCOUNTER → 2021-02-06 13:52 | Outpatient (BNVA) | payer OTHER, SELFPAY | PROVIDERS: PCP Nurse Practitioner Family; Visit Provider Advanced Practice Midwife | DX: Z13.89 Encounter for screening for other disorder (principal) | CPT/HCPCS: 99212 ==

== ENCOUNTER → 2021-03-23 09:25 | Outpatient (BNVA) | payer OTHER, SELFPAY | PROVIDERS: PCP Nurse Practitioner Family; Visit Provider Advanced Practice Midwife | DX: Z34.92 Encounter for supervision of normal pregnancy, unspecified, second trimester (principal); Z3A.26 26 weeks gestation of pregnancy | CPT/HCPCS: 81003; 99212 ==

== ENCOUNTER 2021-04-06 13:16 | Outpatient (REF) | payer OTHER, SELFPAY ==
[2021-04-06 15:51] LABS: Hematocrit 34.3 % (37-47); Hemoglobin 11.7 g/dl (12.0-16.0); Mean Corpuscular HGB Conc 34.1 g/dl (31.0-35.0); Mean Corpuscular Hemoglobin 32.1 pg (27.0-33.0); Mean Corpuscular Volume 94.2 fL (80-98); Mean Platelet Volume 10.1 fL (9.4-12.3); Platelet Count 285 X10*3/uL (160-400); Red Blood Count 3.64 X10*6/uL (4.20-5.50); Red Cell Distribution Width 12.2 % (11.0-16.0); White Blood Count 12.8 X10*3/uL (4.8-10.8)
[2021-04-06 16:03] LABS: Glucose 1 Hour PP 50gm Dose 174 mg/dL (60-140)
[2021-04-06 16:27] LABS: Syphilis Screen Nonreactive (Nonreactive)
== END 2021-04-06 13:17 | disposition home or self-care (01) ==
LOC: HO.LAB 13:16
PROVIDERS: PCP Nurse Practitioner Family; Visit Provider Advanced Practice Midwife
DX: Z34.93 Encounter for supervision of normal pregnancy, unspecified, third trimester (principal); Z3A.28 28 weeks gestation of pregnancy
CPT/HCPCS: 36415; 81003; 85027; 86780; 99212

== ENCOUNTER 2021-04-18 07:15 | Outpatient (REF) | payer OTHER, SELFPAY ==
[2021-04-18 08:08] LABS: Glucose Fasting 88 mg/dL (60-99)
[2021-04-18 09:06] LABS: Glucose 1 Hour 177 mg/dL
[2021-04-18 09:59] LABS: Glucose 2 Hour 119 mg/dL
[2021-04-18 11:41] LABS: Glucose 3 Hour 103 mg/dL
== END 2021-04-18 07:16 | disposition home or self-care (01) ==
LOC: HO.LAB 07:15
PROVIDERS: PCP Internal Medicine; Visit Provider Advanced Practice Midwife
DX: R73.09 Other abnormal glucose (principal)
CPT/HCPCS: 36415; 82951

== ENCOUNTER → 2021-04-24 14:59 | Outpatient (BNVA) | payer OTHER, SELFPAY | PROVIDERS: PCP Nurse Practitioner Family; Visit Provider Advanced Practice Midwife | DX: Z34.93 Encounter for supervision of normal pregnancy, unspecified, third trimester (principal); Z3A.30 30 weeks gestation of pregnancy | CPT/HCPCS: 81003; 99212 ==

== ENCOUNTER → 2021-05-07 14:03 | Outpatient (BNVA) | payer OTHER, SELFPAY | PROVIDERS: PCP Internal Medicine; Visit Provider Advanced Practice Midwife | DX: O99.213 Obesity complicating pregnancy, third trimester (principal); E66.9 Obesity, unspecified; O36.63X0 Maternal care for excessive fetal growth, third trimester, not applicable or unspecified; Z3A.32 32 weeks gestation of pregnancy | CPT/HCPCS: 90471; 99212 ==

== ENCOUNTER 2021-05-15 13:44 | Outpatient (REF) | payer OTHER, SELFPAY ==
--- NOTE | ~2021-05-15 | US_ITS ---
EXAMINATION: OBSTETRICAL ULTRASOUND, Follow up HISTORY: 25-year-old at the 34.0 weeks of gestation Size date discrepancy COMPARISON: 01/30/2021 TECHNIQUE: Real time transabdominal imaging with color and M-mode Doppler. PRESENTATION: Vertex PLACENTA LOCATION: Anterior without previa AMNIOTIC FLUID: ROGERS: 14.4 cm MEASUREMENTS: 1. Biparietal Diameter: 8.5 cm; 34.2 wks 2. Head Circumference: 32.1 cm; 36.2 wks 3. Abdominal Circumference: 30.5 cm; 34.4 wks 4. Femur Length: 6.5 cm; 33.4 wks 5. Heart Rate: 165 beats per minute WEIGHT: EFW: 2410 grams (5 lbs 5 oz) -- 54 %. BIOPHYSICAL PROFILE: Motion: 2 Tone: 2 Breathin Amniotic Fluid: 2 Total score: /8 GESTATIONAL AGE: 1. Established GA: 34.0 wks 2. GA from AUA: 34.5 wks ESTIMATED DATE OF DELIVERY: 1. Established LEFTY: 06/26/2021 2. LEFTY from AUA: 06/21/2021 US/US OB follow up IMPRESSION: 1. A single active fetus is in vertex presentation 2. Size equals dates 3. BPP 05/24, AFV wnl Thank you very much for this referral. This note was generated with a voice recognition program. Please excuse any errors which may have been overlooked during my review of this note. Sometimes these errors may affect the content or meaning of a given sentence.
== END 2021-05-15 13:45 | disposition home or self-care (01) ==
LOC: HO.US 13:44
PROVIDERS: Visit Provider Advanced Practice Midwife
DX: O36.60X0 Maternal care for excessive fetal growth, unspecified trimester, not applicable or unspecified (principal)
CPT/HCPCS: 76816

== ENCOUNTER → 2021-05-28 14:46 | Outpatient (BNVA) | payer OTHER, SELFPAY | PROVIDERS: PCP Internal Medicine; Visit Provider Advanced Practice Midwife | DX: Z34.83 Encounter for supervision of other normal pregnancy, third trimester (principal); Z3A.35 35 weeks gestation of pregnancy | CPT/HCPCS: 99212 ==

== ENCOUNTER 2021-06-03 14:20 | Outpatient (REF) | payer OTHER, SELFPAY ==
[2021-06-04 09:08] LABS: BV Int Neg Control Negative (Negative); BV Int Pos Control Positive (Positive)
== END 2021-06-03 14:21 | disposition home or self-care (01) ==
LOC: HO.LAB 14:20
PROVIDERS: PCP Internal Medicine; Visit Provider Advanced Practice Midwife
DX: O99.891 Other specified diseases and conditions complicating pregnancy (principal); N89.8 Other specified noninflammatory disorders of vagina; Z3A.36 36 weeks gestation of pregnancy; Z20.2 Contact with and (suspected) exposure to infections with a predominantly sexual mode of transmission
CPT/HCPCS: 81003; 87480; 87491; 87510; 87591; 87660; 99212

== ENCOUNTER → 2021-06-12 13:59 | Outpatient (BNVA) | payer OTHER, SELFPAY | PROVIDERS: PCP Internal Medicine; Visit Provider Advanced Practice Midwife | DX: O99.820 Streptococcus B carrier state complicating pregnancy (principal); O99.213 Obesity complicating pregnancy, third trimester; Z3A.37 37 weeks gestation of pregnancy | CPT/HCPCS: 81003; 99212 ==

== ENCOUNTER 2021-07-29 09:33 | Outpatient (REF) | payer OTHER, SELFPAY | END 2021-07-29 09:34 | disposition home or self-care (01) | LOC: HO.LAB 09:33 | PROVIDERS: Visit Provider Advanced Practice Midwife | DX: Z39.1 Encounter for care and examination of lactating mother (principal); R87.615 Unsatisfactory cytologic smear of cervix | CPT/HCPCS: 88142; 99212 ==

== ENCOUNTER → 2021-12-25 14:33 | Outpatient (BNVA) | payer OTHER, SELFPAY | PROVIDERS: PCP Internal Medicine; Visit Provider Advanced Practice Midwife | DX: Z30.017 Encounter for initial prescription of implantable subdermal contraceptive (principal) | CPT/HCPCS: 11981; 81025 ==

== ENCOUNTER 2022-05-11 09:22 | Outpatient (REF) | payer OTHER, SELFPAY ==
[2022-05-11 10:07] LABS: COVID-19 Test Negative (Negative)
== END 2022-05-11 09:23 | disposition home or self-care (01) ==
LOC: HO.LAB 09:22
PROVIDERS: Visit Provider Internal Medicine
DX: Z20.822 Contact with and (suspected) exposure to COVID-19 (principal)
CPT/HCPCS: 87635; C9803

== ENCOUNTER 2022-06-04 14:20 | Outpatient (REF) | payer OTHER, SELFPAY ==
[2022-06-04 14:47] LABS: Binax Internal Control QC Valid; Binax Now Covid-19 Ag Negative (Negative)
== END 2022-06-04 14:21 | disposition home or self-care (01) ==
LOC: HO.HMGCLDS 14:20
PROVIDERS: PCP Internal Medicine; Visit Provider Physician Assistant Medical
DX: Z20.822 Contact with and (suspected) exposure to COVID-19 (principal)
CPT/HCPCS: 87811; C9803

== ENCOUNTER 2023-07-16 06:11 | Emergency (ER) | payer OTHER, SELFPAY ==
[2023-07-16 06:16] VITALS: BP 114/73; PULSE 80; RESP 18; TEMP 37.1; O2SAT 98; BMI 27.9
--- NOTE | 2023-07-16 06:34 | ED_ITS ---
HPI - Female Genitourinary General Chief complaint: Urogenital-Female Stated complaint: lower back and pelvic area Time Seen by Provider: 07/16/23 06:33 Source: patient Mode of arrival: ambulatory Limitations: no limitations History of Present Illness HPI Narrative: Patient is a 27 year old assigned female at with a history of hyperlipidemia presenting to the emergency department today with left flank pain and pain with urination. Patient states that over the last 3 days she has had left flank pain, pain with urination, and nausea but no vomiting. Patient denies any dizziness, lightheadedness, abdominal pain, vomiting, fever, chills, blurry vision, double vision, loss of vision, chest pain, difficulty breathing, shortness of breath, back pain, night sweats, increased urinary frequency, increased urinary urgency, blood in her urine or stool, syncope or a near syncopal episode, recent trauma or falls, bowel incontinence, bladder incontinence, bowel retention, bladder retention, or any other complaints at this time. MD elicited complaint: dysuria Onset (ago): day(s) (3) Severity: mild Severity scale (1-10): 3 Vaginal discharge: none Vaginal bleeding: none Urinary symptoms: Dysuria Exacerbating factors: none Relieving factors: none Associated symptoms: nausea Related Data Previous Rx's Medication Instructions Recorded azithromycin 250 mg tablet See Rx Instructions PO .COMPLEX #6 06/08/22 tabs cefdinir 300 mg capsule 300 mg PO BID 7 days #14 caps 07/16/23 ondansetron 4 mg disintegrating 4 mg PO Q8H 3 days #9 tabs 07/16/23 tablet Allergies Allergy/AdvReac Type Severity Reaction Status Date / Time No Known Allergies Allergy Verified 06/08/22 08:39 [No Known Allergies*] Review of Systems 2 Constitutional: Constitutional: Reports no additional constitutional complaints, Denies chills, Denies fever(s) and Denies night sweats Eyes: Eyes: Reports no additional eye complaints, Denies blurry vision, Denies change in vision, Denies diplopia, Denies eye discharge, Denies loss of vision and Denies eye pain ENT: Denies dizziness Cardiovascular: Cardiovascular: Reports no additional cardiovascular complaints, Denies chest pain, Denies lightheadedness, Denies Loss of Consciousness and Denies dyspnea Respiratory: Respiratory: Reports no additional respiratory complaints and Denies dyspnea Gastrointestinal: Gastrointestinal: Reports no additional gastrointestinal complaints, Denies abdominal pain, Denies melena, Denies hematochezia, Denies change in bowel habits, Denies change in stool character, Reports nausea and Denies vomiting Genitourinary: Genitourinary: Denies hematuria, Denies urinary frequency, Reports dysuria, Denies urinary incontinence, Denies urinary hesitancy and Denies urinary urgency Musculoskeletal: Musculoskeletal: Reports no additional musculoskeletal complaints, Denies numbness and Denies tingling Neurologic: Denies dizziness, Denies loss of vision, Denies numbness and Denies tingling Psychiatric: Psychiatric: Reports no additional psychiatric complaints Endocrine: Endocrine: Reports no additional endocrine complaints Hematologic/Lymphatic: Hematologic/Lymphatic: Reports no additional hematologic/lymphatic complaints Allergic/Immunologic: Allergic/Immunologic: Reports no additional allergic/immunologic complaints PMFSH Past Medical History Attestation statement: The following information was validated with the patient. Source: old records reviewed and nursing notes reviewed Medical History Cracked nipple Insertion of Nexplanon Unsatisfactory cervical Papanicolaou smear Hyperlipidemia Annual physical exam Breast pain, right Anxiety disorder Irregular menses Surgical History [place] teeth extracted Family History Family History Father Medical history non-contributory Mother History of hysterectomy Thyroid disorder Maternal Grandmother No problems noted. Maternal Grandfather Throat cancer Smoker Alcohol drinker Paternal Grandfather Unknown family medical history Paternal Grandmother HTN (hypertension) Paternal Aunt Cancer Sister Healthy female Social History Social History Household Members: Significant Other and Children Housing: House Alcohol intake: current Alcohol intake frequency: holidays/special occasions only Patient Tobacco Use Status: Never used Tobacco e-Cigarette/Vaping Use: Never Used Advance Directives: Yes Advance Directives Information Provided: Yes Advance Directives on File: No Current occupational status: employed Physical Exam 2 Vital Signs: Vital Signs: Last Vital Signs Temp 98.7 F 07/16/23 06:16 Pulse 65 07/16/23 06:39 Resp 18 07/16/23 06:39 BP 101/66 07/16/23 06:39 Pulse Ox 99 07/16/23 06:39 O2 Del Method Room Air 07/16/23 06:39 BMI result Body Mass Index 27.9 Const: General: cooperative, no acute distress, alert and awake Nutritional Appearance: well nourished Orientation/consciousness: patient oriented x3 Limitations: no limitations HEENT: Head: Yes normal to inspection and Yes atraumatic Ears: hearing grossly normal bilaterally and external ears normal General nose exam: Normal external nose present, no nasal discharge noted and no epistaxis Face and sinus: Yes normal facial exam, No abrasion and No laceration Mouth: Normal oral and palatal mucosa present, no drooling and no muffled voice Eyes: General: appearance normal, both eyes and all related structures P eriorbital: periorbital findings normal Eyelids: Yes eyelids normal C onjunctivae: conjunctivae normal Pupils: Equal, round and reactive pupils present EOM: EOMs intact bilaterally Neck: Neck: Yes normal visual inspection, Yes full ROM and Yes no lymphadenopathy Chest: Chest palpation & inspection: normal inspection of the chest Resp: Effort & Inspection: normal respiratory effort and able to speak in complete sentences GI: Inspection: Yes normal to inspection Neuro: General: patient oriented x3 and moves all extremities Cranial nerves: Yes Equal, round and reactive pupils present Cognition (Neuro): n ormal cognition Motor exam (neuro): 5/5 motor strength present throughout Sensory Exam: Normal double simultaneous stimulation for sensation C oordination: eggrbt-[id number] test normal Extrem: General: Yes normal to inspection, Yes full ROM and Yes capillary refill normal Psych: Appearance: grossly normal Mental Status: mental status grossly normal Affect: normal affect Attitude: cooperative Thought process: N ormal thought process present Thought content: Normal thought content present Insight: Good insight present (Psych) Medical Decision Making Medical Decision Making MDM Narrative: Patient is a 27 year old assigned female at with a history of hyperlipidemia presenting to the emergency department today with flank pain and pain with urination. Patient's physical exam was unremarkable. Patient's blood work was unremarkable. Patient's urine showed evidence of an acute UTI. I explained my physical exam findings as well as all test results to the patient. I answered all questions asked by the patient. I stressed the importance of the patient taking her medication as prescribed. I stressed the importance of the patient following up with her primary care provider. I stressed the importance of the patient returning to the emergency department immediately if her symptoms were to worsen or if she were to develop any dizziness, shortness of breath, difficulty breathing, chest pain, blurry vision, loss of vision, nausea, vomiting, abdominal pain, fever, chills, back pain, or any other complaints. Patient verbalized agreement and understanding with this treatment plan and discharge. Differential Diagnosis Differential Diagnoses: The differential diagnosis associated with the presentation includes UTI Lab Data [facility] Lab Attestation statement: I reviewed the patient's lab results. My interpretation of these results are in the [facility] rationale of this note. 07/16/23 06:37 07/16/23 06:37 Labs: Lab Results 07/16/23 07/16/23 Range/Units 06:37 06:45 WBC 5.5 (4.8-10.8) X10*3/uL RBC 4.60 (4.20-5.50) X10*6/uL Hgb 14.0 (12.0-16.0) g/dl Hct 41.0 (37.0-47.0) % MCV 89.1 (80.0-98.0) fL MCH 30.4 (27.0-33.0) pg MCHC 34.1 (31.0-35.0) g/dl RDW 11.9 (11.0-16.0) % Plt Count 273 (160-400) X10*3/uL MPV 9.8 (9.4-12.3) fL Immature Gran % (Auto) 0.4 (0.0-0.4) % Neut % (Auto) 61.1 (45-73) % Lymph % (Auto) 30.1 (20-40) % [place] % (Auto) 6.3 (2-11) % Eos % (Auto) 1.6 (0-4) % Baso % (Auto) 0.5 (0-2) % Lymph # (Auto) 1.7 (1.2-4.9) X10*3/uL [place] # (Auto) 0.4 (0.1-1.2) X10*3/uL Eos # (Auto) 0.1 (0.0-0.4) X10*3/uL Baso # (Auto) 0.0 (0.0-0.2) X10*3/uL Abs Immat Gran (auto) 0.02 (0.00-0.03) X10*3/uL Absolute Neuts (auto) 3.4 (2.0-8.3) x10*3/uL Absolute Nucleated RBC 0.000 (0.0-0.012) X10*3/uL Nucleated RBC % (auto) 0.0 (0.0-0.2) /100WBC Sodium 138 (135-145) mmol/L Potassium 3.6 (3.3-5.1) mmol/L Chloride 108 (96-108) mmol/L Carbon Dioxide 21 L (22-29) mmol/L Anion Gap 13 (12-20) BUN 11 (9-16) mg/dL Creatinine 0.75 (0.5-1.4) mg/dL Estim Creat Clear Calc 108.8 Estimated GFR > 60 Random Glucose 107 (60-115) mg/dL Calcium 8.7 (8.4-10.2) mg/dL Total Bilirubin 0.7 (0.0-1.0) mg/dL AST 16 (5-31) U/L ALT 10 (0-31) U/L Alkaline Phosphatase 68 (39-117) U/L Total Protein 7.1 (6.5-8.0) g/dL Albumin 4.2 (3.5-5.0) g/dL Urine Color Dark Yellow Urine Appearance Cloudy Urine pH 5.5 (5.0-9.0) Ur Specific [place] >= 1.030 H (1.005-1.025) Urine Protein Trace (Neg-Trace) mg/dL Urine Glucose (UA) Negative (Negative) mg/dL Urine Ketones Negative (Negative) mg/dL Urine Blood Moderate (2+) H (Negative) Urine Nitrite Negative (Negative) Ur Leukocyte Esterase Moderate (2+) H (Negative) Urine RBC 11-20 H (0-2) /HPF Urine WBC >50 H (0-5) /HPF Ur Squamous Epith Cells >20 (0-2) /HPF Urine Bacteria 4+ (None Seen) Hyaline Casts 3-5 (0-2) /LPF Prescription Management I considered prescription management with: Antibiotic (patient prescribed an antibiotic.) and Other (patient prescribed an anti-emetic) Discharge Plan Discharge Clinical Impression: Urinary tract infection, Nausea Patient Disposition: Home, Self-Care Instructions: Urinary Tract Infection in Women (DC), Acute Nausea and Vomiting (ED) Additional Instructions: Follow up with your primary care provider. Return to the emergency department immediately if your symptoms worsen or if you develop any dizziness, shortness of breath, difficulty breathing, chest pain, blurry vision, loss of vision, nausea, vomiting, abdominal pain, fever, chills, back pain, or any other complaints. Prescriptions: New ondansetron 4 mg tablet,disintegrating 4 mg PO Q8H 3 Days Qty: 9 0RF cefdinir 300 mg capsule 300 mg PO BID 7 Days Qty: 14 0RF No Action azithromycin 250 mg tablet See Rx Instructions PO .COMPLEX Qty: 6 0RF Rx Instructions: take 500 mg today (day 1), then 250 mg for 4 days (days 2-5) PO Referrals: Sabiha Mcclure MD [Primary Care Provider] - Interventions: ED Discharge Assessment Last Done: 07/16/23 07:28 Discharge Date/Time: 07/16/23 07:28 Print Language: Belarusian
[2023-07-16 06:39] VITALS: BP 101/66; PULSE 65; RESP 18; O2SAT 99
[2023-07-16 06:44] LABS: Basophils Percent Auto 0.5 % (0-2); Eosinophils Absolute Auto 0.1 X10*3/uL (0.0-0.4); Eosinophils Percent Auto 1.6 % (0-4); Imm Gran Abs Auto 0.02 X10*3/uL (0.00-0.03); Imm Gran Pct Auto 0.4 % (0.0-0.4); Lymphocytes Absolute Auto 1.7 X10*3/uL (1.2-4.9); Lymphocytes Percent Auto 30.1 % (20-40); MANUAL DIFF FLAG NO; Mean Corpuscular HGB Conc 34.1 g/dl (31.0-35.0); Mean Corpuscular Hemoglobin 30.4 pg (27.0-33.0); Mean Corpuscular Volume 89.1 fL (80.0-98.0); Mean Platelet Volume 9.8 fL (9.4-12.3); Monocytes Absolute Auto 0.4 X10*3/uL (0.1-1.2); Monocytes Percent Auto 6.3 % (2-11); Neutrophils Absolute Auto 3.4 x10*3/uL (2.0-8.3); Neutrophils Percent Auto 61.1 % (45-73); Platelet Count 273 X10*3/uL (160-400); Red Cell Distribution Width 11.9 % (11.0-16.0); White Blood Count 5.5 X10*3/uL (4.8-10.8)
[2023-07-16 06:51] LABS: Appearance Urine Cloudy; Color Urine Dark Yellow; Glucose Urine UA Negative (Negative); Leukocyte Esterase Urine Moderate (2+) (Negative); Nitrite Urine Negative (Negative); PH 5.5 (5.0-9.0); Specific Gravity - Urine >= 1.030 (1.005-1.025); UMIC TRIGGER UACC YES; Urine Blood Moderate (2+) (Negative); Urine Ketones Negative (Negative); Urine Protein Trace mg/dL (Neg-Trace)
[2023-07-16 06:56] LABS: Bacteria Urine 4+ (None Seen); Squamous Epithelial Cell Urine >20 /HPF (0-2); UACC Culture Trigger YES; WBC Urine >50 /HPF (0-5)
[2023-07-16 06:59] LABS: Alanine Aminotransferase 10 U/L (0-31); Albumin Level 4.2 g/dL (3.5-5.0); Alkaline Phosphatase 68 U/L (39-117); Anion Gap 13 (12-20); Aspartate Amino Transferase 16 U/L (5-31); Bilirubin Total 0.7 mg/dL (0.0-1.0); Blood Urea Nitrogen 11 mg/dL (9-16); Calcium 8.7 mg/dL (8.4-10.2); Carbon Dioxide 21 mmol/L (22-29); Chloride 108 mmol/L (96-108); Creatinine Clr Calc Pharmacy 108.8; Estimated Glomerular Filt Rate > 60; Glucose Random 107 mg/dL (60-115); Potassium 3.6 mmol/L (3.3-5.1); Sodium 138 mmol/L (135-145); Total Protein 7.1 g/dL (6.5-8.0)
== END 2023-07-16 07:28 | disposition home or self-care (01) ==
PROVIDERS: Emergency Provider Student in an Organized Health Care Education/Training Program; PCP Internal Medicine
DX: N39.0 Urinary tract infection, site not specified (principal); R11.0 Nausea; E78.5 Hyperlipidemia, unspecified
CPT/HCPCS: 36415; 80053; 81001; 85025; 87086; 99283

== ENCOUNTER 2024-01-18 06:27 | Outpatient (REF) | payer OTHER, SELFPAY ==
[2024-01-18 06:47] LABS: MANUAL DIFF FLAG NO
[2024-01-18 07:11] LABS: Basophils Percent Auto 0.3 % (0-2); Eosinophils Absolute Auto 0.1 X10*3/uL (0.0-0.4); Eosinophils Percent Auto 1.5 % (0-4); Hematocrit 41.1 % (37.0-47.0); Hemoglobin 14.2 g/dl (12.0-16.0); Imm Gran Abs Auto 0.02 X10*3/uL (0.00-0.03); Imm Gran Pct Auto 0.3 % (0.0-0.4); Lymphocytes Absolute Auto 2.1 X10*3/uL (1.2-4.9); Lymphocytes Percent Auto 31.8 % (20-40); Mean Corpuscular HGB Conc 34.5 g/dl (31.0-35.0); Mean Corpuscular Hemoglobin 30.6 pg (27.0-33.0); Mean Corpuscular Volume 88.6 fL (80.0-98.0); Mean Platelet Volume 9.9 fL (9.4-12.3); Monocytes Absolute Auto 0.4 X10*3/uL (0.1-1.2); Monocytes Percent Auto 6.3 % (2-11); Neutrophils Absolute Auto 3.9 x10*3/uL (2.0-8.3); Neutrophils Percent Auto 59.8 % (45-73); Platelet Count 266 X10*3/uL (160-400); Red Blood Count 4.64 X10*6/uL (4.20-5.50); Red Cell Distribution Width 11.9 % (11.0-16.0); White Blood Count 6.6 X10*3/uL (4.8-10.8)
[2024-01-18 07:47] LABS: Alanine Aminotransferase 12 U/L (0-31); Albumin Level 4.1 g/dL (3.5-5.0); Alkaline Phosphatase 68 U/L (39-117); Anion Gap 10 (12-20); Aspartate Amino Transferase 15 U/L (5-31); Bilirubin Total 0.5 mg/dL (0.0-1.0); Blood Urea Nitrogen 9 mg/dL (9-16); Calcium 9.1 mg/dL (8.4-10.2); Carbon Dioxide 25 mmol/L (22-29); Chloride 109 mmol/L (96-108); Cholesterol 161 mg/dL (<200); Estimated Glomerular Filt Rate > 60; Glucose Fasting 95 mg/dL (60-99); HDL Cholesterol 32 mg/dL (>40); LDL Cholesterol Calculated 118 mg/dL (<100); Potassium 3.9 mmol/L (3.3-5.1); Sodium 140 mmol/L (135-145); Total Protein 7.2 g/dL (6.5-8.0); Triglycerides 57 mg/dL (<150)
[2024-01-18 08:40] LABS: Appearance Urine Turbid; Color Urine Yellow; Glucose Urine UA Negative (Negative); Leukocyte Esterase Urine Trace (Negative); Nitrite Urine Negative (Negative); Specific Gravity - Urine 1.025 (1.005-1.025); UMIC TRIGGER UACC YES; Urine Blood Negative (Negative); Urine Ketones Negative (Negative); Urine Protein Negative (Neg-Trace)
[2024-01-18 08:43] LABS: Bacteria Urine 3+ (None Seen); Hyaline Casts Urine 0-2 /LPF (0-2); RBC Urine 0-2 /HPF (0-2); UACC Culture Trigger YES
== END 2024-01-18 06:28 | disposition home or self-care (01) ==
LOC: HO.LAB 06:27
PROVIDERS: PCP Internal Medicine; Visit Provider Internal Medicine
DX: Z00.00 Encounter for general adult medical examination without abnormal findings (principal); Z13.6 Encounter for screening for cardiovascular disorders; R82.90 Unspecified abnormal findings in urine
CPT/HCPCS: 36415; 80053; 80061; 81001; 85025; 87086

== ENCOUNTER 2024-01-18 13:14 | Outpatient (AMB) | payer OTHER, SELFPAY ==
--- NOTE | 2024-01-18 13:49 | MHC.PC.OV ---
Vital Signs 01/18/24 13:50 Height 5 ft 4 in Weight 163 lb BMI 28.0 BP 104/66 Blood Pressure Location Lt brachial Position Sitting Pulse 72 Pulse Source Pulse Oximeter Pulse Oximetry (%) 99 Oxygen Delivery Method Room Air Intake Visit Reasons: PE Intake Note: Pt is here today for PE. Allergies No Known Allergies [No Known Allergies*] Allergy (Verified 01/18/24 13:50) Medication List - Last Reconciled 01/18/24 by Sabiha Mcclure MD No Known Home Meds Tobacco use date assessed: 01/18/24 Dental Screening Dental Screen Date: 01/18/24 Did you have a dental visit in the last 12 months?: Yes Did you have a dental problem in the last 6 months where you did not have access to dental care?: No Was dental information given to patient?: Patient has dentist HPI PE HPI Details Pt presents for PE. [facility] Medical History (Updated 01/18/24 @ 15:22 by Sabiha Mcclure MD) Insertion of Nexplanon Hyperlipidemia Annual physical exam Anxiety disorder Irregular menses Surgical History [place] teeth extracted Family History Father Medical history non-contributory Mother History of hysterectomy Thyroid disorder Maternal Grandmother No problems noted. Maternal Grandfather Throat cancer Smoker Alcohol drinker Paternal Grandfather Unknown family medical history Paternal Grandmother HTN (hypertension) Paternal Aunt Cancer Sister Healthy female Social History (Updated 01/18/24 @ 15:19 by Sabiha Mcclure MD) Household Members: Children Household Members Other:: works full work, 2 sons (7,2), exercise Both parents involved: Yes Housing: House Alcohol intake: current Alcohol intake frequency: holidays/special occasions only Patient Tobacco Use Status: Never used Tobacco e-Cigarette/Vaping Use: Never Used service: No Current occupational status: employed Cognitive needs: No Hearing needs: No Vision needs: Yes Female Reproductive History Menstrual Age of Menarche: 11 Questionnaire PHQ-9 Over the last 2 weeks, how often have you been bothered by any of the following problems? 1. Little interest or pleasure in doing things: not at all 2. Feeling down, depressed, or hopeless: not at all 3. Trouble falling or staying asleep, or sleeping too much: not at all 4. Feeling tired or having little energy: not at all 5. Poor appetite or overeating: not at all 6. Feeling bad about yourself - or that you are a failure or have let yourself or your family down: not at all 7. Trouble concentrating on things, such as reading the newspaper or watching television: not at all 8. Moving or speaking so slowly that other people could have noticed. Or the opposite - being so fidgety or restless that you have been moving around a lot more than usual: not at all 9. Thoughts that you would be better off or of hurting yourself in some way: not at all Total score: 0 Depression Screening Interpretation: Negative Depression Screening Done: Yes Source: Developed by Drs. Carlton Smiley, Candelaria Mcclelland, Jordan Mills and colleagues, with an educational shayna from [employer]. Thrive Questionnaire Date Thrive assessed: 01/18/24 I am a: Patient What is your living situation today?: I have a steady place to live Within the past 12 months, did the food you bought not last and you didn't have the money to get more?: Never true Within the past 12 months, did you worry whether your food would run out before you got money to buy more?: Never true Do you have trouble paying for medicines?: No Do you have trouble getting transportation to medical appointments?: No Do you have trouble paying your heating and electricity bill?: No Do you have trouble taking care of your child, family member or friend?: No Do you have trouble with day-to-day activities such as bathing, preparing meals, shopping, managing finances, etc.?: No Are you currently unemployed and looking for a job?: No Are you interested in more education?: No Please select the resources that you would like help with: None Currently or been in a relationship where the following occur: no concerns reported THRIVE Score: 0 AUDIT C Alcohol Use Questionnaire (AUDIT-C) 1. How often do you have a drink containing alcohol?: Monthly or less 2. How many drinks containing alcohol do you have on a typical day when you are drinking?: 1 or 2 3. How often do you have six or more drinks on one occasion?: Never Total Score: 1 ANTHONY-7 AMB Questionnaire ANTHONY-7 Date ANTHONY - 7 assessed: 01/18/24 Feeling nervous, anxious, or on edge: 0 = Not at all Not being able to stop or control worryin = Not at all Worrying too much about different things: 0 = Not at all Trouble relaxin = Not at all Being so restless that it is hard to sit still: 0 = Not at all Becoming easily annoyed or irritable: 0 = Not at all Feeling afraid as if something awful might happen: 0 = Not at all Total ANTHONY-7 score (0-4 normal; 5-9 mild; 10-14 moderate; 15-21 severe): 0 Source: Developed by Drs. Carlton Smiley, Candelaria Mcclelland, Jordan Mills and colleagues, with an educational shayna from [employer]. ANTHONY-7 Assessment Billing ANTHONY-7 Assessment Tool: ANTHONY-7 Assessment 43644 Review of Systems Const All systems reviewed & are unremarkable except as noted in HPI and below Reports no additional complaints Eyes Reports no additional complaints ENT Reports no additional complaints Card Reports no additional complaints Resp Reports no additional complaints GI Reports no additional complaints Reports no additional complaints Physical exam (Primary Care) Vital Signs: Last Vital Signs Pulse 72 01/18/24 13:50 BP 104/66 01/18/24 13:50 Pulse Ox 99 01/18/24 13:50 Oxygen Delivery Method Room Air 01/18/24 13:50 BMI result Body Mass Index 28.0 Tobacco/Smoking Status: Tobacco use Status Tobacco use date assessed 01/18/24 01/18/24 13:51 Patient Tobacco Use Status Never used Tobacco 01/18/24 13:51 e-Cigarette/Vaping Use Never Used 01/18/24 13:51 PHQ-9: PHQ-9 Score PHQ-9: Total score 0 01/18/24 13:56 Depression Screening Interpretation: Negative Thrive Assessment: Date of Thrive Assessment Date Thrive assessed 01/18/24 01/18/24 13:56 Currently or been in a relationship where the following occur: no concerns reported Const General: no acute distress HENMT Head: Yes normal to inspection Ears: hearing grossly normal bilaterally Face and sinus: Yes normal facial exam Mouth: Normal oral and palatal mucosa present Throat: Yes posterior oropharynx normal Eyes General: appearance normal, both eyes and all related structures Neck Neck: Yes no lymphadenopathy and Yes supple Resp Effort & Inspection: normal respiratory effort Auscultation: clear to auscultation bilaterally Cardio Rhythm: regular rhythm Heart sounds: S1 normal heart sound present and S2 normal heart sound present GI Inspection: Yes normal to inspection Palpation (GI): Soft to palpation Percussion: Yes normal to percussion Auscultation: normal bowel sounds Assessment and Plan Assessment & Plan (1) Annual physical exam: Code(s): Z00.00 - Encounter for general adult medical examination without abnormal findings Plan: Well-balanced diet regular physical activity discussed with the patient. 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 Panel Fast 1 Year Z00.00 - Encounter for general adult medical examination without abnormal findings Complete Blood Count Auto Diff 1 Year Z00.00 - Encounter for general adult medical examination without abnormal findings UA w Microscopic 1 Year Z00.00 - Encounter for general adult medical examination without abnormal findings Lipid Panel 1 Year Z00.00 - Encounter for general adult medical examination without abnormal findings Coding Level of Care Code Est Pt Prev Care [id number](39178) Diagnoses Annual physical exam Z00.00 Normal Pap smear Z12.4 Additional Codes ANTHONY-7 Assessment Billing - ANTHONY-7 Assessment Tool: ANTHONY-7 Assessment [id number] ([id number])
[2024-01-18 13:50] VITALS: BP 104/66; PULSE 72; O2SAT 99; BMI 28.0
== END 2024-01-18 14:29 | disposition home or self-care (01) ==
PROVIDERS: PCP Internal Medicine; Visit Provider Internal Medicine
DX: Z00.00 Encounter for general adult medical examination without abnormal findings (principal); Z12.4 Encounter for screening for malignant neoplasm of cervix
CPT/HCPCS: 99395

== ENCOUNTER 2024-02-14 13:41 | Outpatient (AMB) | payer OTHER, SELFPAY ==
--- NOTE | 2024-02-14 13:47 | A.OFFPC_ITS ---
Vital Signs 02/14/24 13:48 Height 5 ft 4 in Weight 159 lb BMI 27.3 BP 94/60 Blood Pressure Location Rt brachial Position Sitting Pulse 63 Pulse Source Pulse Oximeter Pulse Oximetry (%) 97 Oxygen Delivery Method Room Air Intake Visit Reasons: Discuss referral Intake Note: Pt is here today for a sick visit. Pt c/o blood in her stool. Pt states that when she has bowel movement she noticed bright red blood on the tissue. Allergies No Known Allergies [No Known Allergies*] Allergy (Verified 02/14/24 13:51) Medication List - Last Reconciled 02/14/24 by Sabiha Mcclure MD No Known Home Meds Tobacco use date assessed: 02/14/24 Dental Screening Dental Screen Date: 01/18/24 HPI Discuss referral HPI Details Patient noticed blood on the toilet tissue after wiping herself after having a hard bowel movement a few days ago. Patient reports some rectal discomfort afterwards. Patient denies abdominal pain nausea vomiting fever chills blood mixed with the stool. [facility] Medical History (Updated 02/14/24 @ 14:24 by Sabiha Mcclure MD) Insertion of Nexplanon Hyperlipidemia Annual physical exam Anxiety disorder Irregular menses Surgical History [place] teeth extracted Family History Father Medical history non-contributory Mother History of hysterectomy Thyroid disorder Maternal Grandmother No problems noted. Maternal Grandfather Throat cancer Smoker Alcohol drinker Paternal Grandfather Unknown family medical history Paternal Grandmother HTN (hypertension) Paternal Aunt Cancer Sister Healthy female Social History (Updated 01/18/24 @ 15:19 by Sabiha Mcclure MD) Household Members: Children Household Members Other:: works full work, 2 sons (7,2), exercise Both parents involved: Yes Housing: House Alcohol intake: current Alcohol intake frequency: holidays/special occasions only Patient Tobacco Use Status: Never used Tobacco e-Cigarette/Vaping Use: Never Used service: No Current occupational status: employed Cognitive needs: No Hearing needs: No Vision needs: Yes Female Reproductive History Menstrual Age of Menarche: 11 Questionnaire Thrive Questionnaire Date Thrive assessed: 01/18/24 ANTHONY-7 AMB Questionnaire ANTHONY-7 Date ANTHONY - 7 assessed: 01/18/24 Source: Developed by Drs. Carlton Smiley, Candelaria Mcclelland, Jordan Mills and colleagues, with an educational shayna from [employer]. Review of Systems Const All systems reviewed & are unremarkable except as noted in HPI and below Eyes Reports no additional complaints ENT Reports no additional complaints Resp Reports no additional complaints GI Reports no additional complaints Reports no additional complaints Physical exam (Primary Care) Vital Signs: Last Vital Signs Pulse 63 02/14/24 13:48 BP 94/60 02/14/24 13:48 Pulse Ox 97 02/14/24 13:48 Oxygen Delivery Method Room Air 02/14/24 13:48 BMI result Body Mass Index 27.3 Tobacco/Smoking Status: Tobacco use Status Tobacco use date assessed 02/14/24 02/14/24 13:52 Patient Tobacco Use Status Never used Tobacco 02/14/24 13:52 e-Cigarette/Vaping Use Never Used 02/14/24 13:52 Thrive Assessment: Date of Thrive Assessment Date Thrive assessed 01/18/24 02/14/24 13:52 Const General: no acute distress HENMT Face and sinus: Yes normal facial exam Resp Effort & Inspection: normal respiratory effort Auscultation: clear to auscultation bilaterally Cardio Rhythm: regular rhythm Heart sounds: S1 normal heart sound present and S2 normal heart sound present GI Inspection: Yes normal to inspection Palpation (GI): Soft to palpation Percussion: Yes normal to percussion Auscultation: normal bowel sounds Assessment and Plan Assessment & Plan (1) Normal Pap smear: 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 Well-balanced diet increase fiber intake and avoid straining while having a bowel movement discussed with the patient. Proctocort suppositories are prescribed patient will do FIT test after the treatment for hemorrhoids. She has an appointment with GI in March. Orders: Orders AMB Fecal Immunochemical Test Today Z12.11 - Encounter for screening for malignant neoplasm of colon, Z12.12 - Encounter for screening for malignant neoplasm of rectum Referrals QUALITY ASSURANCE TECHNICIAN Referral Z12.4 - Encounter for screening for malignant neoplasm of cervix Medications: New hydrocortisone acetate (Proctocort) 30 mg HI BID 12 ea 0RF Coding Level of Care Code Est Pt Level 3 (61120) Diagnoses Normal Pap smear Z12.4 Rectal bleeding K62.5
[2024-02-14 13:48] VITALS: BP 94/60; PULSE 63; O2SAT 97; BMI 27.3
== END 2024-02-14 14:26 | disposition home or self-care (01) ==
PROVIDERS: PCP Internal Medicine; Visit Provider Internal Medicine
DX: Z12.4 Encounter for screening for malignant neoplasm of cervix (principal); K62.5 Hemorrhage of anus and rectum
CPT/HCPCS: 99213

== ENCOUNTER 2024-07-16 11:30 | Outpatient (AMB) | payer OTHER, SELFPAY ==
--- NOTE | 2024-07-16 11:34 | A.OFFVIS_ITS ---
Vital Signs 07/16/24 11:35 Height 5 ft 4 in Weight 160 lb 14.999 oz BMI 27.6 BP 110/63 Blood Pressure Location Lt brachial Position Sitting Pulse 65 Intake Visit Reasons: Blood in stool Intake Note: Patient in office today for blood in stool. CC: Patient reports bloody stools when she is in her menstrual cycle. She states that it happens every few periods. Clin Tech Required: No Accompanied by: Mother Allergies No Known Allergies [No Known Allergies*] Allergy (Verified 07/16/24 11:38) HPI HPI Blood in stool: Details: HPI 28 yr old f here for assessment She has noted bloody stools usu during her menstrual cycles usu noted on wiping, sometimes seen in the stool denies abdominal pain denies straining, no pushing sometimes notes pain passing stool never has urgency she goes once a day no nausea or vomiting normal appetite periods are v heavy she has nexplanon, periods are heavy -- she has to change pad every hour, usu at least 2 bad days she does not eat meat, at all, she has sea food she denies urine sx or vaginal d/c she has stable relation with one partner ROS: Constitutional : No Weight loss, No Fever, No Chills ENT/Mouth : No sore throat, No Rhinorrhea Eyes: No Swelling, No Redness Cardiovascular : No Chest Pain, No SOB, No Edema Respiratory : No Cough, No Sputum, No Wheezing Gastrointestinal : see HPI Genitourinary : NO Dysuria, No Urinary Frequency, No Hematuria, No Urgency Musculoskeletal : + joint pain, No Myalgias, No Joint Swelling Skin : No Skin Lesions, No rash Neuro : No Weakness, No Numbness, No Dizziness, No Headache Psych : No Anxiety/Panic, No Depression Heme/Lymph: No Bruising, No Lymphadenopathy Endocrine : No Polyuria, No Polydipsia All other systems reviewed and are negative. Medical History none Surgical History none Family History Mother- low BP Social History non smoker, no alcohol, no drug use EXAM: GENERAL: The patient is well developed and nontoxic. VITAL SIGNS:see workflow HEENT: Nonicteric sclerae, PERRLA, EOMI. Oropharynx clear. Moist mucous membranes. Conjunctivae appear well perfused. No thyroid mass. CHEST: Chest wall is nontender. HEART: Regular rate and rhythm without murmurs. LUNGS: Clear to auscultation bilaterally. ABDOMEN: Soft, positive bowel sounds, nontender, no organomegaly.no flank tenderness SKIN: No rash, no excessive bruising, petechiae, or purpura. NEUROLOGIC: Cranial nerves II-XII intact without motor/sensory deficit. Psych: normal affect A/P: 1/ Recatal bleeding usu around periods, some pain of defecation, could be proctitis, or ischemia related to reduced perfusion from heavy menses, hormonal imbalance, low lying rectal lesion Recent CBC from 02/07 was normal with HGb 14 PLAN: 1/ Colonoscopy for assessment --suprep 2/ recheck CBC and iron levels, b12 folate, CRP PFSH Medical History Insertion of Nexplanon Hyperlipidemia Annual physical exam Anxiety disorder Irregular menses Surgical History History of esophagogastroduodenoscopy (EGD) [place] teeth extracted Family History Father Medical history non-contributory Mother History of hysterectomy Thyroid disorder Maternal Grandmother No problems noted. Maternal Grandfather Throat cancer Smoker Alcohol drinker Paternal Grandfather Unknown family medical history Paternal Grandmother HTN (hypertension) Paternal Aunt Cancer Sister Healthy female Social History Household Members: Children Household Members Other:: works full work, 2 sons (7,2), exercise Both parents involved: Yes Housing: House Alcohol intake: current Alcohol intake frequency: holidays/special occasions only Patient Tobacco Use Status: Never used Tobacco e-Cigarette/Vaping Use: Never Used service: No Current occupational status: employed Cognitive needs: No Hearing needs: No Vision needs: Yes Female Reproductive History Menstrual Age of Menarche: 11 Physical Exam Vital Signs: Last Vital Signs Pulse 65 07/16/24 11:35 BP 110/63 07/16/24 11:35 BMI result Body Mass Index 27.6 Assessment & Plan Assessment & Plan (1) Rectal bleeding: Code(s): K62.5 - Hemorrhage of anus and rectum Category: Medical Plan: see above Orders: Orders Complete Blood Count Auto Diff Today K62.5 - Hemorrhage of anus and rectum Vitamin B12 and Folate Today K62.5 - Hemorrhage of anus and rectum Ferritin Today K62.5 - Hemorrhage of anus and rectum C Reactive Protein Today K62.5 - Hemorrhage of anus and rectum Medications: New sodium,potassium,mag sulfates 17.5-3.13-1.6 gram (Suprep Bowel Prep Kit) DILUTE; drink 1/2 at 6-8 pm and half at 11 PM- 1AM 354 mL 0RF Coding Level of Care Code New Pt Level 4 (57485) Diagnoses Rectal bleeding K62.5
[2024-07-16 11:35] VITALS: BP 110/63; PULSE 65; BMI 27.6
== END 2024-07-16 13:15 | disposition home or self-care (01) ==
PROVIDERS: PCP Internal Medicine; Visit Provider Internal Medicine Gastroenterology
DX: K62.5 Hemorrhage of anus and rectum (principal)
CPT/HCPCS: 99204

== ENCOUNTER 2024-11-13 09:15 | Day surgery (SDC) | payer OTHER, SELFPAY ==
--- NOTE | 2024-11-12 13:59 | P.CONAN_ITS ---
Documented by User: Elidia Zuniga NP 11/12/24 13:59 HPI - Anesthesia Eval Consult details Narrative: 29yo F for Colonoscopy PMFSH Active Problems Active Problems: All Active Problems Rectal bleeding (Acute) Normal Pap smear (Acute) Upper respiratory tract infection (Acute) Hyperlipidemia (Acute) Annual physical exam (Acute) Past Medical History Medical History Insertion of Nexplanon Hyperlipidemia Annual physical exam Anxiety disorder Irregular menses Family History Family History Father Medical history non-contributory Mother History of hysterectomy Thyroid disorder Maternal Grandmother No problems noted. Maternal Grandfather Throat cancer Smoker Alcohol drinker Paternal Grandfather Unknown family medical history Paternal Grandmother HTN (hypertension) Paternal Aunt Cancer Sister Healthy female Surgical History Surgical History History of esophagogastroduodenoscopy (EGD) [place] teeth extracted Social History Social History Household Members: Children Household Members Other:: works full work, 2 sons (7,2), exercise Housing: House Alcohol intake: current Alcohol intake frequency: holidays/special occasions only Patient Tobacco Use Status: Never used Tobacco e-Cigarette/Vaping Use: Never Used Use of substances other than those prescribed or required for medical reasons: No Have you been hit, kicked, punched, or otherwise hurt by someone within the past year? If so, by whom?: No Are you DNR?: No Advance Directives: No Advance Directives Information Provided: Yes Recently lost weight without trying: No service: No Current occupational status: employed Cognitive needs: No Hearing needs: No Vision needs: Yes Meds Allergies Allergy/AdvReac Type Severity Reaction Status Date / Time No Known Allergies Allergy Verified 07/16/24 11:38 [No Known Allergies*] Assessment and Plan Assessment Anesthesia Assessment: Chart Reviewed Documented by User: Ector Emery MD 11/13/24 11:33 [facility] Past Medical History Medical History Insertion of Nexplanon Hyperlipidemia Annual physical exam Anxiety disorder Irregular menses Family History Family History Father Medical history non-contributory Mother History of hysterectomy Thyroid disorder Maternal Grandmother No problems noted. Maternal Grandfather Throat cancer Smoker Alcohol drinker Paternal Grandfather Unknown family medical history Paternal Grandmother HTN (hypertension) Paternal Aunt Cancer Sister Healthy female Family history of problems with anesthesia: No Surgical History Surgical History History of esophagogastroduodenoscopy (EGD) [place] teeth extracted History of Problems with Anesthesia: No Social History Social History Household Members: Children Household Members Other:: works full work, 2 sons (7,2), exercise Housing: House Alcohol intake: current Alcohol intake frequency: holidays/special occasions only Patient Tobacco Use Status: Never used Tobacco e-Cigarette/Vaping Use: Never Used Use of substances other than those prescribed or required for medical reasons: No Have you been hit, kicked, punched, or otherwise hurt by someone within the past year? If so, by whom?: No Are you DNR?: No Advance Directives: No Advance Directives Information Provided: Yes Recently lost weight without trying: No service: No Current occupational status: employed Cognitive needs: No Hearing needs: No Vision needs: Yes Meds Allergies Allergy/AdvReac Type Severity Reaction Status Date / Time No Known Allergies Allergy Verified 07/16/24 11:38 [No Known Allergies*] Exam Airway Mallampati Class: I TM Dist: >3cm Neck ROM: Full Loose/Missing/Broken Teeth: No Assessment and Plan Assessment Anesthesia Assessment: Anesthesia Plan Discussed Final Anesthetic Review Family History of Problems with Anesthesia: No History of Problems with Anesthesia: No NPO: Yes ASA Class: I Final Preanesthetic Review: No Changes in Pt Med Stat, Meds/Allgs Chart Reviewed, Consent Obtained/Reviewed and Anes Risks/Benef Reviewed Patient Risk: Low Procedure Risk: Low Anesthetic Plan Anesthetic Plan: MAC: Disposition: Standard PACU
--- OUTSIDE RECORDS SUMMARY | 2024-11-13 09:43 | XMS_ITS | Encounter Summary ---
Author Organization [facility] Address [address] [place] [phone] Phone Care Team Providers Care Shearing Machine Feeder Name Role Phone Kayli Rendon MD Primary Care Provider [phone] Encounter Details Date Type Department Care Team (Late st Contact Info) Description 08/01/2013 Documentation [facility] Family Medicine [address] [place] [address] Family Medicine, Physician [address] [place], [place] [phone] Social History Tobacco Use Types Packs/Day Years Used Date Smoking Tobacco: Never Assessed Comments Unknown Sex and Gender Information Value Date Recorded Sex Assigned at Not on file Legal Sex Female 4:54 PM EDT Gender Identity Not on file Sexual Orientation Not on file documented as of this encounter Plan of Treatment Not on file documented as of this encounter Visit Diagnoses Not on filedocumented in this encounter Care Teams Shearing Machine Feeder Relationship Specialty Start Date End Date Kayli Rendon MD [address] [place] [id number] PCP - General 05/27/17 01/16/23 documented as of this encounter
--- OUTSIDE RECORDS SUMMARY | 2024-11-13 09:43 | XMS_ITS | Encounter Summary ---
Author Organization [facility] Address [address] [place] [address] Phone Care Team Providers Care Parliamentary Archivist Name Role Phone Kayli Rendon MD Primary Care Provider [phone] Encounter Details Date Type Department Care Team (Late st Contact Info) Description 07/07/2012 Documentation [facility] [place] Family Medicine [address] [place] [address] Family Medicine, Physician [address] [place], [place] [phone] Social History Tobacco Use Types Packs/Day Years [...] on filedocumented in this encounter Care Teams Parliamentary Archivist Relationship Specialty Start Date End Date Kayli Rendon MD [address] [place] [id number] PCP - General 05/27/17 01/16/23 documented as of this encounter
--- OUTSIDE RECORDS SUMMARY | 2024-11-13 09:43 | XMS_ITS | Encounter Summary ---
Author Organization [facility] Address [address] [place] [address] Phone Care Team Providers Care Green End Department Supervisor Name Role Phone Kayli Rendon MD Primary Care Provider [phone] Encounter Details Date Type Department Care Team (Late st Contact Info) Description 04/14/2012 Documentation [facility] Family Medicine [address] [place] [address] Family Medicine, Physician [address] [place], [place] [phone] Social History Tobacco Use Types Packs/Day Years [...] on filedocumented in this encounter Care Teams Green End Department Supervisor Relationship Specialty Start Date End Date Kayli Rendon MD [address] [place] [phone] PCP - General 05/27/17 01/16/23 documented as of this encounter
--- OUTSIDE RECORDS SUMMARY | 2024-11-13 09:43 | XMS_ITS | Clinical Summary ---
Author Organization [facility] Address [address] [place] [address] Phone Care Team Providers Care Event Sales Representative Name Role Phone Unavailable Primary Care Provider Unavailabl e Immunizations Name Administration Dates Next Due DTP 08/27/1998, 7,02/09/1995,01/14,1993 H1N1 02/24/2010 HPV, Quadrivalent 04/24/2009,12/24/2008,09/12/20 07 Hep A, Adult 07/01/2014 Hep B, ped/adol 04/09/1994,1993,1993 Hib (PRP-T) 01/02/1997, 5,01/14/1994,10/22 Influenza Split 07/31/2013, 2,02/25/2011,08/29,08/27/1999 Influenza, injectable, quadr ivalent, preservative free 07/01/2014 Influenza, injectable, trivalent 09/12/2007,08/17,08/27/1999 MMR 09/02/1997,11/11/1994 Meningococcal Conj (Menactra) MCV4P 09/12/2007 OPV 08/27/1998, 7,01/14/1994,10/22 Tdap 08/03/2006 Varicella 12/24/2008,08/27/1998 Family History Relation Name Status Comments Father Alive Father: Alive a nd well Mother Alive Mother: Alive a nd well Other No family histo ry of *Dental caries, No family history of *Heart Disease, Family history of elevated cholesteral, No family history of *CVA/Stroke, No family history of *Sudden /[place] under 55, Family history of Seizure disorder, No family history of *Thrombophilia, Family history of Migraines Sister Alive Sister: Asthma Social History Tobacco Use Types Packs/Day Years Used Date Smoking Tobacco: Never Comments:Never smoker Comments Unknown Sex and Gender Information Value Date Recorded Sex Assigned at Not on file Legal Sex Female 4:54 PM EDT Gender Identity Not on file Sexual Orientation Not on file Last Filed Vital Signs Vital Sign Reading Time Taken Comments Blood Pressure 118/70 11/06/2014 12:00 AM EST Pulse 91 11/06/2014 12:00 AM EST Temperature 36.6 ??C (97.8 ??F) 11/13/2013 12:[address] Respiratory Rate - - Oxygen Saturation - - Inhaled Oxygen Concentration - - Weight 63.2 kg (139 lb 6.4 oz) 11/06/2014 12:00 AM EST Height 164.6 cm (5' 4.8 ) 11/06/2014 12:00 AM ES T Body Mass Index 23.34 11/06/2014 12:00 AM EST Plan of Treatment Health Maintenance Due Date Last Done Comments DTaP,Tdap,and Td Vaccines (7 - Td or Tdap) 08/03/2016 08/03/2006, 08/27/1998, 01/02/1997, Additional history exists Influenza Vaccines (#1) 2024 07/01/20 14, 07/31/2013, 07/06/2012, Additional history exists COVID-19 Vaccine ( season) 2024 Hepatitis B Vaccines Completed 04/09/1994, 1993, 1993 HIB Vaccines Completed 01/02/1997, 10/18, 01/14/1994, Additional history exists MMR Vaccines Completed 09/02/1997, 11/11/1994 IPV Vaccines Completed 08/27/1998, 12/15, 01/14/1994, Additional history exists Meningococcal Vaccine Aged Out 09/12/2007 No victorina lior eligible based on patient's age to complete this topic Varicella Vaccines Completed 12/24/2008, 08/27/1998 HPV Vaccines Completed 04/24/2009, 12/15, 09/12/2007 Hepatitis A Vaccines Aged Out 07/01/2014 No long er eligible based on patient's age to complete this topic Men B Vaccine Aged Out No longer elig ible based on patient's age to complete this topic Pneumococcal Vaccine Aged Out No long er eligible based on patient's age to complete this topic Procedures * Due to [facility] law, this organization might not be sharing sensitive test results. Procedure Name Priority Date/Time Associated Diagnosis Comments CHLAMYDIA AND GONORRHEA, AMPLIFIED Routine 08/16/2014 2:10 PM EDT from Last 3 Months or Most Recently Relevant to Health Maintenance Results * Due to [facility] law, this organization might not be sharing sensitive test results. * Chlamydia and Gonorrhoea, Amplified (08/16/2014 2:10 PM EDT) [facility] URINE GC AMP PROBE NEGATIVE [facility] Comment: NO NEISSERIA GONORRHOEAE RNA DETECTED IN THIS PATIENT'S SAMPLE. (REFERENCE RANGE/NORMAL VALUE: NOT DETECTED) NOTE: This test uses hospice music therapist-mediated amplification method to detect rRNA from C.Trachomatis and N.Gonorrhoeae. A negative result does not preclude infection. In the case of a negative urine result, testing of an endocervical(female) or urethral(male) specimen is recommended if there is high clinical suspicion of infection. The performance characteristics of this test have not been evaluated in children. The Aptima Combo2 assay is not intended for the evaluation of suspected sexual abuse or for other medico-legal indications. The ordering provider should assess if the patient had consensual sex without risk of sexual abuse. Consult the [facility] if needed. Contact phone number . Therapeutic failure or success cannot be determined with the Aptima Combo2 assay since nucleic acid may persist following appropriate antimicrobial therapy. The Centers for Disease Control and Prevention (CDC) recommends confirmatory retesting using culture or a different nucleic acid amplification test when positive results occur, if indicated. Testing performed or reported by [facility], a Service of [facility], [address] [place] [id number] Mark Chapman MD, PhD, Card Mounter URINE CHLAMYDIA AMP PROBE NEGATIVE [facility] Comment: NO CHLAMYDIA TRACHOMATIS RNA DETECTED IN THIS PATIENT'S SAMPLE. (REFERENCE RANGE/NORMAL VALUE: NOT DETECTED) 08/16/2014 2:10 PM EDT [facility] - 08/16/2014 2:10 PM EDT URINE CHLAMYDIA GC AMP PROBE Kayli Rendon MD LAB MICROBIOLOGY - GENERAL ORDER MARKOS Final Result [facility] [address] [place] [address], [place] from Last 3 Months or Most Recently Relevant to Health Maintenance
--- OUTSIDE RECORDS SUMMARY | 2024-11-13 09:43 | XMS_ITS | Encounter Summary ---
Author Organization [facility] Address [address] [place] [phone] Phone Care Team Providers Care Casing Grader Name Role Phone Kayli Rendon MD Primary Care Provider [phone] Encounter Details Date Type Department Care Team (Late st Contact Info) Description 03/02/2013 Documentation [facility] [place] [address] [place] [address] Family Medicine, Physician [address] [place], [place] [phone] Social History Tobacco Use Types Packs/Day Years [...] on filedocumented in this encounter Care Teams Casing Grader Relationship Specialty Start Date End Date Kayli Rednon MD [address] [place] [phone] PCP - General 05/27/17 01/16/23 documented as of this encounter
--- OUTSIDE RECORDS SUMMARY | 2024-11-13 09:43 | XMS_ITS | Encounter Summary ---
Author Organization [facility] Address [address] [place] [address] Phone Care Team Providers Care Fiberglass Boat Maker Name Role Phone Kayli Rendon MD Primary Care Provider [phone] Encounter Details Date Type Department Care Team (Late st Contact Info) Description 07/02/2014 Documentation [facility] [address] [place] [address] Family Medicine, Physician [address] [place], [place] [phone] Social History Tobacco Use Types Packs/Day Years [...] on filedocumented in this encounter Care Teams Fiberglass Boat Maker Relationship Specialty Start Date End Date Kayli Rendon MD [address] [place] [phone] PCP - General 05/27/17 01/16/23 documented as of this encounter
--- OUTSIDE RECORDS SUMMARY | 2024-11-13 09:43 | XMS_ITS | Encounter Summary ---
Author Organization [facility] Address [address] [place] [address] Phone Care Team Providers Care Health Specialist Name Role Phone Kayli Rendon MD Primary Care Provider [phone] Encounter Details Date Type Department Care Team (Late st Contact Info) Description 07/02/2014 Documentation [facility] [place] Family Medicine [address] [place] [address] Family Medicine, Physician [address] [place], [place] [phone] Social History Tobacco Use Types Packs/Day Years [...] on filedocumented in this encounter Care Teams Health Specialist Relationship Specialty Start Date End Date Kayli Rendon MD [address] [place] [address] PCP - General 05/27/17 01/16/23 documented as of this encounter
--- OUTSIDE RECORDS SUMMARY | 2024-11-13 09:43 | XMS_ITS | Encounter Summary ---
Author Organization [facility] Address [address] [place] [address] Phone Care Team Providers Care Soa Integration Architect Name Role Phone Kayli Rendon MD Primary Care Provider [phone] Encounter Details Date Type Department Care Team (Late st Contact Info) Description 07/02/2014 [place] [facility] [place] [address] [place] [address] Family Medicine, Physician [address] [place], [place] [phone] Social History Tobacco Use Types Packs/Day Years [...] on filedocumented in this encounter Care Teams Soa Integration Architect Relationship Specialty Start Date End Date Kayli Rendon MD [address] [place] [address] PCP - General 05/27/17 01/16/23 documented as of this encounter
--- OUTSIDE RECORDS SUMMARY | 2024-11-13 09:43 | XMS_ITS | Encounter Summary ---
Author Organization [facility] Address [address] [place] [address] Phone Care Team Providers Care Plasterer Apprentice Name Role Phone Kayli Rendon MD Primary Care Provider [phone] Encounter Details Date Type Department Care Team (Late st Contact Info) Description 02/29/2012 Documentation [facility] [place] Family Medicine [address] [place] [address] Family Medicine, Physician [address] [place], [place] [phone] Social History Tobacco Use Types Packs/Day Years [...] on filedocumented in this encounter Care Teams Plasterer Apprentice Relationship Specialty Start Date End Date Kayli Rendon MD [address] [place] [address] PCP - General 05/27/17 01/16/23 documented as of this encounter
--- OUTSIDE RECORDS SUMMARY | 2024-11-13 09:43 | XMS_ITS | Encounter Summary ---
Author Organization [facility] Address [address] [place] [address] Phone Care Team Providers Care Business Director Name Role Phone Kayli Rendon MD Primary Care Provider [phone] Encounter Details Date Type Department Care Team (Late st Contact Info) Description 11/20/2014 Documentation [facility] Family Medicine [address] [place] [address] Family Medicine, Physician [address] [place], [place] [id number] Social History Tobacco Use Types Packs/Day Years [...] on filedocumented in this encounter Care Teams Business Director Relationship Specialty Start Date End Date Kayli Rendon MD [address] [place] [address] PCP - General 05/27/17 01/16/23 documented as of this encounter
--- OUTSIDE RECORDS SUMMARY | 2024-11-13 09:43 | XMS_ITS | Encounter Summary ---
Author Organization [facility] Address [address] [place] [address] Phone Care Team Providers Care Driver Trainer Name Role Phone Kayli Rendon MD Primary Care Provider [phone] Encounter Details Date Type Department Care Team (Late st Contact Info) Description 10/12/2011 Document[place] [facility] [place] [address] [place] [address] Family Medicine, Physician [address] [place], [place] [phone] Social History Tobacco Use Types Packs/Day Years [...] on filedocumented in this encounter Care Teams Driver Trainer Relationship Specialty Start Date End Date Kayli Rendon MD [address] [place] [address] PCP - General 05/27/17 01/16/23 documented as of this encounter
--- OUTSIDE RECORDS SUMMARY | 2024-11-13 09:43 | XMS_ITS | Encounter Summary ---
Author Organization [facility] Address [address] [place] [address] Phone Care Team Providers Care Percussion Instrument Tuner Name Role Phone Kayli Rendon MD Primary Care Provider [phone] Encounter Details Date Type Department Care Team (Late st Contact Info) Description 03/02/2013 [place] [facility] [place] [address] [place] [address] Family Medicine, Physician [address] [place], [place] [phone] Social History Tobacco Use Types Packs/Day Years [...] on filedocumented in this encounter Care Teams Percussion Instrument Tuner Relationship Specialty Start Date End Date Kayli Rendon MD [address] [place] [address] PCP - General 05/27/17 01/16/23 documented as of this encounter
--- OUTSIDE RECORDS SUMMARY | 2024-11-13 09:43 | XMS_ITS | Encounter Summary ---
Author Organization [facility] Address [address] [place] [address] Phone Care Team Providers Care Credit Union Teller Name Role Phone Kayli Rendon MD Primary Care Provider [phone] Encounter Details Date Type Department Care Team (Late st Contact Info) Description 05/26/2011 Documentation [facility] [place] Medicine [address] [place] [address] Family Medicine, Physician [address] [place], [place] [phone] Social History Tobacco Use Types Packs/Day Years [...] on filedocumented in this encounter Care Teams Credit Union Teller Relationship Specialty Start Date End Date Kayli Rendon MD [address] [place] [address] PCP - General 05/27/17 01/16/23 documented as of this encounter
--- OUTSIDE RECORDS SUMMARY | 2024-11-13 09:43 | XMS_ITS | Encounter Summary ---
Author Organization [facility] Address [address] [place] [address] Phone Care Team Providers Care Food And Beverage Coordinator Name Role Phone Kayli Rendon MD Primary Care Provider [phone] Encounter Details Date Type Department Care Team (Late st Contact Info) Description 03/02/2013 Documentation [facility] [place] Family Medicine [address] [place] [address] Family Medicine, Physician [address] [place], [place] [phone] Social History Tobacco Use Types Packs/Day Years [...] on filedocumented in this encounter Care Teams Food And Beverage Coordinator Relationship Specialty Start Date End Date Kayli Rendon MD [address] [place] [address] PCP - General 05/27/17 01/16/23 documented as of this encounter
--- OUTSIDE RECORDS SUMMARY | 2024-11-13 09:43 | XMS_ITS | Encounter Summary ---
Author Organization [facility] Address [address] [place] [address] Phone Care Team Providers Care Clinical Staff Pharmacist Name Role Phone Kayli Rendon MD Primary Care Provider [phone] Encounter Details Date Type Department Care Team (Late st Contact Info) Description 02/29/2012 Documentation [facility] [place] [address] [place] [address] Family Medicine, Physician [address] [place], [place] [phone] Social History Tobacco Use Types Packs/Day Years [...] on filedocumented in this encounter Care Teams Clinical Staff Pharmacist Relationship Specialty Start Date End Date Kayli Rendon MD [address] [place] [address] PCP - General 05/27/17 01/16/23 documented as of this encounter
--- OUTSIDE RECORDS SUMMARY | 2024-11-13 09:43 | XMS_ITS | Encounter Summary ---
Author Organization [facility] Address [address] [place] [address] Phone Care Team Providers Care Tours Captain Name Role Phone Kayli Rendon MD Primary Care Provider [phone] Encounter Details Date Type Department Care Team (Late st Contact Info) Description 03/27/2012 Documentation [facility] [place] [address] [place] [address] Family Medicine, Physician [address] [place], [place] [phone] Social History Tobacco Use Types Packs/Day Years [...] on filedocumented in this encounter Care Teams Tours Captain Relationship Specialty Start Date End Date Kayli Rendon MD [address] [place] [address] PCP - General 05/27/17 01/16/23 documented as of this encounter
--- OUTSIDE RECORDS SUMMARY | 2024-11-13 09:43 | XMS_ITS | Encounter Summary ---
Author Organization [facility] Address [address] [place] [address] Phone Care Team Providers Care Expeller Worker Name Role Phone Kayli Rendon MD Primary Care Provider [phone] Encounter Details Date Type Department Care Team (Late st Contact Info) Description 08/18/2017 Conversion Encounter [facility] [place] [address] [place] [address] Social History Tobacco Use Types Packs/Day Years [...] on filedocumented in this encounter Care Teams Expeller Worker Relationship Specialty Start Date End Date Kayli Rendon MD [address] [place] [address] PCP - General 05/27/17 01/16/23 documented as of this encounter
--- OUTSIDE RECORDS SUMMARY | 2024-11-13 09:43 | XMS_ITS | Encounter Summary ---
Author Organization [facility] Address [address] [place] [address] Phone Care Team Providers Care Inside Sales Representative Name Role Phone Kayli Rendon MD Primary Care Provider [phone] Encounter Details Date Type Department Care Team (Late st Contact Info) Description 07/02/2014 [place] [facility] [place] [address] [place] [address] Family Medicine, Physician [address] [place], [place] [phone] Social History Tobacco Use Types Packs/Day Years [...] on filedocumented in this encounter Care Teams Inside Sales Representative Relationship Specialty Start Date End Date Kayli Rendon MD [address] [place] [address] PCP - General 05/27/17 01/16/23 documented as of this encounter
--- OUTSIDE RECORDS SUMMARY | 2024-11-13 09:43 | XMS_ITS | Clinical Summary ---
Author Organization [facility] Address [address] [place] [address] Care Team Providers Care Java Architect Name Role Phone Unavailable Primary Care Provider Unavailabl e Surgical History Surgery Date Site/Laterality Comments WISDOM TOOTH EXTRACTION PROCEDURE: HISTORICAL WISDOM TEETH EXTRACTION Medical History Medical History Date Comments Anxiety disorder DX:Anxiety diso rder Irregular menses DX:Irregular me nses Family History Medical History Relation Name Comments Throat cancer Maternal Grandmother Thyroid disease Mother Relation Name Status Comments Maternal Grandmother Mother Social History Tobacco Use Types Packs/Day Years Used Date Smoking Tobacco: Never Assessed Sex and Gender Information Value Date Recorded Sex Assigned at Not on file Gender Identity Not on file Sexual Orientation Not on file Obstetrics History Plan of Treatment Health Maintenance Due Date Last Done Comments DTaP,Tdap,and Td Vaccines (1 - Tdap) 2012 Hepatitis B Vaccines (1 of 3 - 19+ 3-dose series) 2012 Cervical Cancer Screening: P ap Smear 2014 COVID-19 Vaccine (2023-2 5 season) 2024 Influenza Vaccine (#1) 2024 HIB Vaccines Aged Out No longer eligi ble based on patient's age to complete this topic HPV Vaccines Aged Out No longer eligi ble based on patient's age to complete this topic Hepatitis A Vaccines Aged Out No long er eligible based on patient's age to complete this topic IPV Vaccines Aged Out No longer eligi ble based on patient's age to complete this topic MMR Vaccines Aged Out No longer eligi ble based on patient's age to complete this topic Meningococcal ACWY Vaccine Aged Out N o longer eligible based on patient's age to complete this topic Pneumococcal Vaccine: Pediat rics (0 to 5 Years) and At-Risk Patients (6 to 64 Years) Aged Out No longer eligible b ased on patient's age to complete this topic RSV Immunization Patients Un rita 20 months Aged Out No longer eligible b ased on patient's age to complete this topic Varicella Vaccines Aged Out No longer eligible based on patient's age to complete this topic
[2024-11-13 10:06] VITALS: RESP 16; TEMP 36.6; O2SAT 98; BMI 28.3
[2024-11-13 10:10] LABS: UPreg QC Valid YES
[2024-11-13 10:11] LABS: Urine Pregnancy NEGATIVE (NEGATIVE)
[2024-11-13] MEDS: Lactated Ringers 1,000 ML 100 ML IVCONT (10:24)
--- NOTE | 2024-11-13 10:42 | P.HPSUR_ITS ---
Pre-Procedural Eval Section A - 24 Hr Update-Section A only Date of Service: 11/13/24 Section B - Complete if H&P > 30 days Chief Complaint: Hemorrhage of anus and rectum Relevant Family History (Specify if Yes): No Relevant Social History: None Present Medications: see Short Stay Collaborative assessment Medical History: Significant History (Insertion of Nexplanon Hyperlipidemia Annual physical exam Anxiety disorder Irregular menses) History of Previous Operations: Relevant previous surgery/procedure and date(s) ( History of esophagogastroduodenoscopy (EGD) [place] teeth extracted) Allergies: Allergies Allergy/AdvReac Type Severity Reaction Status Date / Time No Known Allergies Allergy Verified 07/16/24 11:38 [No Known Allergies*] Review of Systems Sugical H&P ROS: Negative: Constitution, Cardiovascular, Respiratory, Neurological, Psychiatric, Hem-Onc, Allergic/Immunologic, Gastrointestinal, Genitourinary, Musculoskeletal, Integumentary, Endocrine and Eyes/Ears/Nose/Throat Exam Surgical H&P Exam: Normal: HEENT, Normal: Heart, Normal: Lungs, Normal: Extremities, Normal: Abdomen, Normal: Skin and Normal: Neurological Plan Diagnosis/Plan: Unchanged I have reviewed the history and physical and performed a pertinent physical examination on my patient. No changes have occurred unless specified. Time Spent With Patient Time: Total time managing care of this patient today ____ minutes.
--- NOTE | 2024-11-13 11:12 | P.OPN-COLO_ITS ---
Colonoscopy Operative Note Operative Note Date of Service: 11/13/24 Narrative: Operative Information Procedure Description: Colonoscopy Indication: rectal bleeding Anesthesia: MAC COLONOSCOPY Instrument: Olympus variable stiffness pediatric scope 190L Colonoscopy Monitoring: Vital signs and clinical assessment, continuous EKG monitoring, Pulse oximetry, Carbon Dioxide monitoring and blood pressure monitoring were done throughout the procedure. Colon withdrawal time was 7 minutes. Procedure: The patient was placed in the left lateral decubitis position and pre-procedure medications were administered. After a digital rectal examination of the ano-rectum, the video colonoscope was inserted into the rectum and advanced through the colon to the cecum/TI. The colonoscope was slowly withdrawn in a retrograde panoramic fashion and the colon mucosa was carefully examined including a retroflexed view of the rectum. Findings and interventions are described below. Procedure Difficulty: easy Findings: Terminal Ileum-normal Cecum:normal Right sided retroflexion- normal Ascending Colon: normal Transverse Colon -normal Descending Colon:normal Sigmoid Colon: normal Rectum: Retroflexion with small internal hemorrhoids seen, grade I with red solano Anorectum - normal Intervention: none Colon preparation: [place] Bowel Preparation Scale Right colon; 2 Transverse colon: 2 Left colon; 2 (0 = Unprepared colon segment with mucosa not seen due to solid stool that cannot be cleared. 1 = Portion of mucosa of the colon segment seen, but other areas of the colon segment not well seen due to staining, residual stool and/or opaque liquid. 2 = Minor amount of residual staining, small fragments of stool and/or opaque liquid, but mucosa of colon segment seen well. 3 = Entire mucosa of colon segment seen well with no residual staining, small fragments of stool or opaque liquid) Impression and Post Procedure Diagnosis: internal hemorrhoids Plan: High fiber diet leaflet Avoid straining at stool, epsom salts and sitz bath, anusol supps or cream Repeat Colonoscopy aged 45 years or earlier if clinically indicated Above findings were reviewed with the patient and relevant handouts were provided if indicated.
[2024-11-13 11:20] VITALS: BP 100/58; PULSE 81; RESP 16; TEMP 36.1; O2SAT 97
[2024-11-13 11:35] VITALS: BP 101/58; PULSE 72; RESP 16; TEMP 36.2; O2SAT 97
== END 2024-11-13 11:48 | disposition home or self-care (01) ==
PROVIDERS: Nurse Practitioner; PCP Internal Medicine; Visit Provider Internal Medicine Gastroenterology
PROC: 0DJD8ZZ Inspection of Lower Intestinal Tract, Via Natural or Artificial Opening Endoscopic (ICD-10-PCS; CPT 45378; principal; 2024-11-13 11:50)
DX: K62.5 Hemorrhage of anus and rectum (principal); K64.0 First degree hemorrhoids; E78.5 Hyperlipidemia, unspecified; F41.9 Anxiety disorder, unspecified
CPT/HCPCS: 45378; 81025; J2003; J2704; J3010

== ENCOUNTER → 2024-11-13 09:15 | Outpatient (BNV) | payer OTHER, SELFPAY | PROVIDERS: PCP Internal Medicine; Visit Provider Internal Medicine Gastroenterology | DX: K62.5 Hemorrhage of anus and rectum (principal); K64.0 First degree hemorrhoids | CPT/HCPCS: 45378 ==

== ENCOUNTER 2025-02-06 12:53 | Outpatient (AMB) | payer OTHER, SELFPAY ==
[2025-02-06 12:57] VITALS: BP 104/70; PULSE 65; RESP 18; TEMP 37.2; O2SAT 98; BMI 27.8
--- NOTE | 2025-02-06 12:57 | A.OFFPC_ITS ---
Vital Signs 02/06/25 12:57 Height 5 ft 3 in Weight 157 lb BMI 27.8 BP 104/70 Blood Pressure Location Lt brachial Position Sitting Respiration 18 Pulse 65 Pulse Source Pulse Oximeter Temp 99.0 F Temp Source Oral Pulse Oximetry (%) 98 Oxygen Delivery Method Room Air Intake Visit Reasons: PE Intake Note: Pt is here today for PE. Allergies No Known Allergies [No Known Allergies*] Allergy (Verified 02/06/25 13:18) Medication List - Last Reconciled 02/06/25 by Sabiha Mcclure MD No Known Home Meds Tobacco use date assessed: 02/06/25 Dental Screening Dental Screen Date: 02/06/25 Did you have a dental visit in the last 12 months?: Yes Did you have a dental problem in the last 6 months where you did not have access to dental care?: No Was dental information given to patient?: Patient has dentist HPI PE HPI Details Patient presents for physical PFS Medical History (Updated 02/06/25 @ 13:39 by Sabiha Mcclure MD) Insertion of Nexplanon Hyperlipidemia Annual physical exam Anxiety disorder Irregular menses Surgical History (Updated 02/06/25 @ 13:22 by TRISTAN Bush) H/O colonoscopy History of esophagogastroduodenoscopy (EGD) [place] teeth extracted Family History Father Medical history non-contributory Mother History of hysterectomy Thyroid disorder Maternal Grandmother No problems noted. Maternal Grandfather Throat cancer Smoker Alcohol drinker Paternal Grandfather Unknown family medical history Paternal Grandmother HTN (hypertension) Paternal Aunt Cancer Sister Healthy female Social History Household Members: Children Household Members Other:: works full work, 2 sons (7,2), exercise Both parents involved: Yes Housing: House Alcohol intake: current Alcohol intake frequency: holidays/special occasions only Patient Tobacco Use Status: Never used Tobacco e-Cigarette/Vaping Use: Never Used service: No Current occupational status: employed Cognitive needs: No Hearing needs: No Vision needs: Yes Female Reproductive History Menstrual Age of Menarche: 11 Questionnaire PHQ-9 Over the last 2 weeks, how often have you been bothered by any of the following problems? 1. Little interest or pleasure in doing things: not at all 2. Feeling down, depressed, or hopeless: not at all 3. Trouble falling or staying asleep, or sleeping too much: not at all 4. Feeling tired or having little energy: not at all 5. Poor appetite or overeating: not at all 6. Feeling bad about yourself - or that you are a failure or have let yourself or your family down: not at all 7. Trouble concentrating on things, such as reading the newspaper or watching television: not at all 8. Moving or speaking so slowly that other people could have noticed. Or the opposite - being so fidgety or restless that you have been moving around a lot more than usual: not at all 9. Thoughts that you would be better off or of hurting yourself in some way: not at all Total score: 0 Depression Screening Interpretation: Negative Depression Screening Done: Yes 48237 - PHQ-9 Billing: Yes Source: Developed by Drs. Carlton Smiley, Candelaria Mcclelland, Jordan Mills and colleagues, with an educational shayna from [employer]. Thrive Questionnaire Date Thrive assessed: 02/06/25 I am a: Patient What is your living situation today?: I have a steady place to live Within the past 12 months, did the food you bought not last and you didn't have the money to get more?: Never true Within the past 12 months, did you worry whether your food would run out before you got money to buy more?: Never true Do you have trouble paying for medicines?: No Do you have trouble getting transportation to medical appointments?: No Do you have trouble paying your heating and electricity bill?: No Do you have trouble taking care of your child, family member or friend?: No Do you have trouble with day-to-day activities such as bathing, preparing meals, shopping, managing finances, etc.?: No Are you currently unemployed and looking for a job?: No Are you interested in more education?: No Please select the resources that you would like help with: None Currently or been in a relationship where the following occur: No concerns reported THRIVE Score: 0 AUDIT C Alcohol Use Questionnaire (AUDIT-C) 1. How often do you have a drink containing alcohol?: Never 3. How often do you have six or more drinks on one occasion?: Never Total Score: 0 ANTHONY-7 AMB Questionnaire ANTHONY-7 Date ANTHONY - 7 assessed: 02/06/25 Feeling nervous, anxious, or on edge: 0 = Not at all Not being able to stop or control worryin = Not at all Worrying too much about different things: 0 = Not at all Trouble relaxin = Not at all Being so restless that it is hard to sit still: 0 = Not at all Becoming easily annoyed or irritable: 0 = Not at all Feeling afraid as if something awful might happen: 0 = Not at all Total ANTHONY-7 score (0-4 normal; 5-9 mild; 10-14 moderate; 15-21 severe): 0 Source: Developed by Drs. Carlton Smiley, Candelaria Mcclelland, Jordan Mills and colleagues, with an educational shayna from [employer]. ANTHONY-7 Assessment Billing ANTHONY-7 Assessment Tool: ANTHONY-7 Assessment 60655 Review of Systems Const All systems reviewed & are unremarkable except as noted in HPI and below Eyes Reports no additional complaints ENT Reports no additional complaints Card Reports no additional complaints Resp Reports no additional complaints GI Reports no additional complaints Reports no additional complaints Musc Reports no additional complaints Physical exam (Primary Care) Vital Signs: Last Vital Signs Temp 99.0 F 02/06/25 12:57 Pulse 65 02/06/25 12:57 Resp 18 02/06/25 12:57 BP 104/70 02/06/25 12:57 Pulse Ox 98 02/06/25 12:57 Oxygen Delivery Method Room Air 02/06/25 12:57 BMI result Body Mass Index 27.8 Tobacco/Smoking Status: Tobacco use Status Tobacco use date assessed 02/06/25 02/06/25 13:22 Patient Tobacco Use Status Never used Tobacco 02/06/25 12:59 e-Cigarette/Vaping Use Never Used 02/06/25 12:59 PHQ-9: PHQ-9 Score PHQ-9: Total score 0 02/06/25 13:08 Depression Screening Interpretation: Negative Thrive Assessment: Date of Thrive Assessment Date Thrive assessed 02/06/25 02/06/25 13:08 Currently or been in a relationship where the following occur: No concerns reported Const General: no acute distress HENMT Head: Yes normal to inspection Face and sinus: Yes normal facial exam Mouth: Normal oral and palatal mucosa present Eyes General: appearance normal, both eyes and all related structures Neck Neck: Yes no lymphadenopathy and Yes supple Resp Effort & Inspection: normal respiratory effort Auscultation: clear to auscultation bilaterally Cardio Rhythm: regular rhythm Heart sounds: S1 normal heart sound present and S2 normal heart sound present GI Inspection: Yes normal to inspection Palpation (GI): Soft to palpation Percussion: Yes normal to percussion Auscultation: normal bowel sounds Coding Level of Care Code Est Pt Prev Care 18-39y(49933) Diagnoses Hyperlipidemia E78.5 Annual physical exam Z00.00 Additional Codes ANTHONY-7 Assessment Billing - ANTHONY-7 Assessment Tool: ANTHONY-7 Assessment 46321 ([id number]) PHQ-9 - 79218 - PHQ-9 Billing: Yes ([id number]) Assessment & Plan Assessment & Plan (1) Hyperlipidemia: Code(s): E78.5 - Hyperlipidemia, unspecified Category: Medical Plan: Low-cholesterol diet discussed with the patient she will return for fasting blood work (2) Annual physical exam: Code(s): Z00.00 - Encounter for general adult medical examination without abnormal findings Category: Medical Plan: Well-balanced diet regular physical activity discussed with the patient she is established with [place] senior microsoft net developer. Patient will return for fasting blood work Orders: Orders Complete Blood Count Auto Diff Today E78.5 - Hyperlipidemia, unspecified, Z00.00 - Encounter for general adult medical examination without abnormal findings Lipid Panel Today E78.5 - Hyperlipidemia, unspecified, Z00.00 - Encounter for general adult medical examination without abnormal findings Comprehensive [place]. Panel Fast Today E78.5 - Hyperlipidemia, unspecified, Z00.00 - Encounter for general adult medical examination without abnormal findings TSH reflex Free T4 Today E78.5 - Hyperlipidemia, unspecified, Z00.00 - Encounter for general adult medical examination without abnormal findings Comprehensive [place]. Panel Fast 1 Year Z00.00 - Encounter for general adult medical examination without abnormal findings Complete Blood Count Auto Diff 1 Year Z00.00 - Encounter for general adult medical examination without abnormal findings Lipid Panel 1 Year Z00.00 - Encounter for general adult medical examination without abnormal findings
--- OUTSIDE RECORDS SUMMARY | 2025-02-06 15:10 | XMS_ITS | Clinical Summary ---
Author Organization [facility] [address] ity Address [address] [place] [address] Care Team Providers Care Digital Account Supervisor Name Role Phone Unavailable Primary Care Provider [...] at Not on file Legal Sex Female 5:43 PM EST Gender Identity Not on file Sexual Orientation Not on file Obstetrics History Plan of Treatment Health Maintenance Due Date Last Done Comments DTaP,Tdap,and Td Vaccines (1 - Tdap) 2012 Hepatitis B Vaccines (1 of 3 - 19+ 3-dose series) 2012 Cervical Cancer Screening: P ap Smear 2014 COVID-19 Vaccine (2023-2 5 season) 2024 Influenza Vaccine (Season Ended) 2025 HIB Vaccines Aged Out No longer eligi [...] patient's age to complete this topic Meningococcal B Vaccine Aged Out No l onger eligible based on patient's age to complete [...]
--- OUTSIDE RECORDS SUMMARY | 2025-02-06 15:10 | XMS_ITS | Encounter Summary ---
Author Organization [facility] Address [address] [place] [address] Phone Care Team Providers Care Pharmacist Intern Name Role Phone Kayli Rendon MD Primary Care Provider [phone] Encounter Details Date Type Department Care Team (Late st Contact Info) Description 02/29/2012 Documentation [facility] [place] Family Medicine [address] [place] [address] Family Medicine, Physician [address] [place], [place] [phone] Social History Tobacco Use Types Packs/Day Years [...] on filedocumented in this encounter Care Teams Pharmacist Intern Relationship Specialty Start Date End Date Kayli Rendon MD [address] [place] [address] PCP - General 05/27/17 01/16/23 documented as of this encounter
--- OUTSIDE RECORDS SUMMARY | 2025-02-06 15:10 | XMS_ITS | Encounter Summary ---
Author Organization [facility] Address [address] [place] [address] Phone Care Team Providers Care Metal Cut Off Saw Tender Name Role Phone Kayli Rendon MD Primary Care Provider [phone] Encounter Details Date Type Department Care Team (Late st Contact Info) Description 08/18/2017 Conversion Encounter [facility] [address] [place] [address] Social History Tobacco Use Types Packs/Day Years [...] on filedocumented in this encounter Care Teams Metal Cut Off Saw Tender Relationship Specialty Start Date End Date Kayli Rendon MD [address] [place] [address] PCP - General 05/27/17 01/16/23 documented as of this encounter
--- OUTSIDE RECORDS SUMMARY | 2025-02-06 15:10 | XMS_ITS | Encounter Summary ---
Author Organization [facility] Address [address] [place] [address] Phone Care Team Providers Care Medical Appliance Maker Name Role Phone Kayli Rendon MD Primary Care Provider [phone] Encounter Details Date Type Department Care Team (Late st Contact Info) Description 03/02/2013 Documentation [facility] Family Medicine [address] [place] [address] Family Medicine, Physician [address] [place], [place] [phone] Social History Tobacco Use Types Packs/Day Years [...] on filedocumented in this encounter Care Teams Medical Appliance Maker Relationship Specialty Start Date End Date Kayli Rendon MD [address] [place] [address] PCP - General 05/27/17 01/16/23 documented as of this encounter
--- OUTSIDE RECORDS SUMMARY | 2025-02-06 15:10 | XMS_ITS | Encounter Summary ---
Author Organization [facility] Address [address] [place] [address] Phone Care Team Providers Care Airport Representative Name Role Phone Kayli Rendon MD Primary Care Provider [phone] Encounter Details Date Type Department Care Team (Late st Contact Info) Description 07/02/2014 Documentation [facility] [place] [address] [place] [address] Family Medicine, Physician [address] [place], [place] [phone] Social History Tobacco Use Types Packs/Day Years [...] on filedocumented in this encounter Care Teams Airport Representative Relationship Specialty Start Date End Date Kayli Rendon MD [address] [place] [address] PCP - General 05/27/17 01/16/23 documented as of this encounter
--- OUTSIDE RECORDS SUMMARY | 2025-02-06 15:10 | XMS_ITS | Encounter Summary ---
Author Organization [facility] Address [address] [place] [address] Phone Care Team Providers Care Risk Engineer Name Role Phone Kayli Rendon MD Primary Care Provider [phone] Encounter Details Date Type Department Care Team (Late st Contact Info) Description 05/26/2011 Documentation [facility] [place] Family Medicine [address] [place] [address] Family Medicine, Physician [address] [place], [place] [phone] Social History Tobacco Use Types Packs/Day Years [...] on filedocumented in this encounter Care Teams Risk Engineer Relationship Specialty Start Date End Date Kayli Rendon MD [address] [place] [address] PCP - General 05/27/17 01/16/23 documented as of this encounter
--- OUTSIDE RECORDS SUMMARY | 2025-02-06 15:10 | XMS_ITS | Encounter Summary ---
Author Organization [facility] Address [address] [place] [address] Phone Care Team Providers Care Snout Puller Name Role Phone Kayli Rendon MD Primary Care Provider [phone] Encounter Details Date Type Department Care Team (Late st Contact Info) Description 07/02/2014 Documentation [facility] [place] Family Medicine [address] [place] [address] Family Medicine, Physician [address] [place], [place] [phone] Social History Tobacco Use Types Packs/Day Years [...] on filedocumented in this encounter Care Teams Snout Puller Relationship Specialty Start Date End Date Kayli Rendon MD [address] [place] [address] PCP - General 05/27/17 01/16/23 documented as of this encounter
--- OUTSIDE RECORDS SUMMARY | 2025-02-06 15:10 | XMS_ITS | Encounter Summary ---
Author Organization [facility] Address [address] [place] [address] Phone Care Team Providers Care Rfid Developer Name Role Phone Kayli Rendon MD Primary Care Provider [phone] Encounter Details Date Type Department Care Team (Late st Contact Info) Description 03/27/2012 Documentation [facility] [place] [address] [place] [address] Family Medicine, Physician [address] [place], [place] [phone] Social History Tobacco Use Types Packs/Day Years [...] on filedocumented in this encounter Care Teams Rfid Developer Relationship Specialty Start Date End Date Kayli Rendon MD [address] [place] [address] PCP - General 05/27/17 01/16/23 documented as of this encounter
--- OUTSIDE RECORDS SUMMARY | 2025-02-06 15:10 | XMS_ITS | Encounter Summary ---
Author Organization [facility] Address [address] [place] [address] Phone Care Team Providers Care Sound Engineer Audio Control Name Role Phone Kayli Rendon MD Primary Care Provider Encounter Details Date Type Department Care Team (Late st Contact Info) Description 10/12/2011 Documentation [facility] [place] [place] Family Medicine [address] [place] [address] Family Medicine, Physician [address] [place], [place] [phone] Social History Tobacco Use Types Packs/Day Years [...] on filedocumented in this encounter Care Teams Sound Engineer Audio Control Relationship Specialty Start Date End Date Kayli Rendon MD [address] [place] [address] PCP - General 05/27/17 01/16/23 documented as of this encounter
--- OUTSIDE RECORDS SUMMARY | 2025-02-06 15:10 | XMS_ITS | Encounter Summary ---
Author Organization [facility] Address [address] [place] [address] Phone Care Team Providers Care Industrial Engineer Name Role Phone Kayli Rendon MD Primary Care Provider [phone] Encounter Details Date Type Department Care Team (Late st Contact Info) Description 07/02/2014 Documentation [facility] [place] [address] [place] [address] Family Medicine, Physician [address] [place], [place] [phone] Social History Tobacco Use Types Packs/Day Years [...] on filedocumented in this encounter Care Teams Industrial Engineer Relationship Specialty Start Date End Date Kayli Rendon MD [address] [place] [address] PCP - General 05/27/17 01/16/23 documented as of this encounter
--- OUTSIDE RECORDS SUMMARY | 2025-02-06 15:10 | XMS_ITS | Encounter Summary ---
Author Organization [facility] Address [address] [place] [address] Phone Care Team Providers Care Breakfast Manager Name Role Phone Kayli Rendon MD Primary Care Provider [phone] Encounter Details Date Type Department Care Team (Late st Contact Info) Description 03/02/2013 Documentation [facility] Family Medicine [address] [place] [address] Family Medicine, Physician [address] [place], [place] [phone] Social History Tobacco Use Types Packs/Day Years [...] on filedocumented in this encounter Care Teams Breakfast Manager Relationship Specialty Start Date End Date Kayli Rendon MD [address] [place] [address] PCP - General 05/27/17 01/16/23 documented as of this encounter
--- OUTSIDE RECORDS SUMMARY | 2025-02-06 15:10 | XMS_ITS | Clinical Summary ---
Author Organization [facility] Address [address] [place] [address] Phone Care Team Providers Care Chemical Processing Supervisor Name Role Phone Unavailable Primary Care Provider Unavailabl e Immunizations Immunization Administration Dates Next Due DTP 08/27/1998, 7,02/09/1995,01/14,1993 [...] of *CVA/Stroke, No family history of *Sudden /UT under 55, Family history of Seizure disorder, [...] complete this topic Procedures * Due to [facility] law, this organization might not be sharing sensitive test results. Procedure Name Priority Date/Time Associated Diagnosis Comments CHLAMYDIA AND GONORRHEA, AMPLIFIED Routine 08/16/2014 2:10 PM EDT from Last 3 Months or Most Recently Relevant to Health Maintenance Results * Due to [facility] law, this organization might not be sharing sensitive test results. * Chlamydia and Gonorrhoea, Amplified (08/16/2014 2:10 PM EDT) [facility] URINE GC AMP PROBE NEGATIVE [facility] Comment: NO NEISSERIA GONORRHOEAE RNA DETECTED IN THIS PATIENT'S SAMPLE. (REFERENCE RANGE/NORMAL VALUE: NOT DETECTED) NOTE: This test uses solutions market consultant-mediated amplification method to detect rRNA from C.Trachomatis [...] without risk of sexual abuse. Consult the [facility] if needed. Contact phone number . Therapeutic failure or success cannot be determined with the Aptima Combo2 assay since nucleic acid may persist following appropriate antimicrobial therapy. The Centers for Disease Control and Prevention (CDC) recommends confirmatory retesting using culture or a different nucleic acid amplification test when positive results occur, if indicated. Testing performed or reported by [facility], a Service of [facility], [address] [place] [address] Mark Chapman MD, PhD, Dry Finisher URINE CHLAMYDIA AMP PROBE NEGATIVE [facility] Comment: NO CHLAMYDIA TRACHOMATIS RNA DETECTED IN THIS PATIENT'S SAMPLE. (REFERENCE RANGE/NORMAL VALUE: NOT DETECTED) 08/16/2014 2:10 PM EDT [facility] - 08/16/2014 2:10 PM EDT URINE CHLAMYDIA GC AMP PROBE Kayli Rendon MD LAB MICROBIOLOGY - GENERAL ORDER MARKOS Final Result [facility] [address] [place] [address], [place] from Last 3 Months or Most Recently Relevant to Health Maintenance
--- OUTSIDE RECORDS SUMMARY | 2025-02-06 15:10 | XMS_ITS | Encounter Summary ---
Author Organization [facility] Address [address] [place] [address] Phone Care Team Providers Care Business Risk Analyst Name Role Phone Kayli Rendon MD Primary Care Provider [phone] Encounter Details Date Type Department Care Team (Late st Contact Info) Description 08/01/[address] [facility] [place] Family Medicine [address] [place] [address] Family Medicine, Physician [address] [place], [place] [phone] Social History Tobacco Use Types Packs/Day Years [...] filedocumented in this encounter Care Teams Business Risk Analyst Relationship Specialty Start Date End Date Kayli Rendon MD [address] [place] [address] PCP - General 05/27/17 01/16/23 documented as of this encounter
--- OUTSIDE RECORDS SUMMARY | 2025-02-06 15:10 | XMS_ITS | Encounter Summary ---
Author Organization [facility] Address [address] [place] [address] Phone Care Team Providers Care Heart Coordinator Name Role Phone Kayli Rendon MD Primary Care Provider [phone] Encounter Details Date Type Department Care Team (Late st Contact Info) Description 07/07/2012 Documentation [facility] [place] [address] [place] [address] Family Medicine, Physician [address] [place], [place] [phone] Social History Tobacco Use Types Packs/Day Years [...] on filedocumented in this encounter Care Teams Heart Coordinator Relationship Specialty Start Date End Date Kayli Rendon MD [address] [place] [address] PCP - General 05/27/17 01/16/23 documented as of this encounter
--- OUTSIDE RECORDS SUMMARY | 2025-02-06 15:10 | XMS_ITS | Encounter Summary ---
Author Organization [facility] Address [address] [place] [address] Phone Care Team Providers Care Dragger Name Role Phone Kayli Rendon MD Primary Care Provider [phone] Encounter Details Date Type Department Care Team (Late st Contact Info) Description 02/29/2012 Documentation [facility] [place] [address] [place] [address] Family Medicine, Physician [address] [place], [place] [phone] Social History Tobacco Use Types Packs/Day Years [...] on filedocumented in this encounter Care Teams Dragger Relationship Specialty Start Date End Date Kayli Rendon MD [address] [place] [address] PCP - General 05/27/17 01/16/23 documented as of this encounter
--- OUTSIDE RECORDS SUMMARY | 2025-02-06 15:10 | XMS_ITS | Encounter Summary ---
Author Organization [facility] Address [address] [place] [address] Phone Care Team Providers Care Wire Twister Name Role Phone Kayli Rendon MD Primary Care Provider [phone] Encounter Details Date Type Department Care Team (Late st Contact Info) Description 11/20/2014 Documentation [facility] [place] Family Medicine [address] [place] [address] Family Medicine, Physician [address] [place] [address] Social History Tobacco Use Types Packs/Day Years [...] on filedocumented in this encounter Care Teams Wire Twister Relationship Specialty Start Date End Date Kayli Rendon MD [address] [place] [id number] PCP - General 05/27/17 01/16/23 documented as of this encounter
--- OUTSIDE RECORDS SUMMARY | 2025-02-06 15:10 | XMS_ITS | Encounter Summary ---
Author Organization [facility] Address [address] [place] [address] Phone Care Team Providers Care Diamond Sizer Name Role Phone Kayli Rendon MD Primary Care Provider [phone] Encounter Details Date Type Department Care Team (Late st Contact Info) Description 03/02/2013 Documentation [facility] [place] Family Medicine [address] [place] [address] Family Medicine, Physician [address] [place], [place] [phone] Social History Tobacco Use Types Packs/Day Years [...] on filedocumented in this encounter Care Teams Diamond Sizer Relationship Specialty Start Date End Date Kayli Rendon MD [address] [place] [id number] PCP - General 05/27/17 01/16/23 documented as of this encounter
--- OUTSIDE RECORDS SUMMARY | 2025-02-06 15:10 | XMS_ITS | Encounter Summary ---
Author Organization [facility] Address [address] [place] [phone] Phone Care Team Providers Care Pesticide Use Medical Coordinator Name Role Phone Kayli Rendon MD Primary Care Provider [phone] Encounter Details Date Type Department Care Team (Late st Contact Info) Description 04/14/2012 Documentation [facility] [place] Family Medicine [address] [place] [address] Family Medicine, Physician [address] [place], [place] [phone] Social History Tobacco Use Types Packs/Day Years [...] on filedocumented in this encounter Care Teams Pesticide Use Medical Coordinator Relationship Specialty Start Date End Date Kayli Rendon MD [address] [place] [id number] PCP - General 05/27/17 01/16/23 documented as of this encounter
--- OUTSIDE RECORDS SUMMARY | 2025-02-06 15:10 | XMS_ITS | Encounter Summary ---
Author Organization [facility] Address [address] [place] [address] Phone Care Team Providers Care Vibrator Equipment Tester Name Role Phone Kayli Rendon MD Primary Care Provider [phone] Encounter Details Date Type Department Care Team (Late st Contact Info) Description 07/02/2014 Documentation [facility] [place] [address] [place] [address] Family Medicine, Physician [address] [place], [place] [phone] Social History Tobacco Use Types Packs/Day Years [...] on filedocumented in this encounter Care Teams Vibrator Equipment Tester Relationship Specialty Start Date End Date Kayli Rendon MD [address] [place] [id number] PCP - General 05/27/17 01/16/23 documented as of this encounter
== END 2025-02-06 13:41 | disposition home or self-care (01) ==
LOC: HO.HMCC 12:54
PROVIDERS: PCP Internal Medicine; Visit Provider Internal Medicine
DX: E78.5 Hyperlipidemia, unspecified (principal); Z00.00 Encounter for general adult medical examination without abnormal findings